=== PATIENT | female | born 1955 | race Caucasian/White ===

== ENCOUNTER 2016-06-18 14:32 | Emergency (ER) | payer SELFPAY ==
[2016-06-18 15:21] LABS: BILIRUBIN,URINE NEGATIVE (NEG); GLUCOSE,URINE 100 mg/dL (NEG); NITRITE,URINE NEGATIVE (NEG); PROTEIN,URINE NEGATIVE (NEG-TRACE); UROBILINOGEN,URINE 0.2 mg/dL (0.2 mg/dL)
[2016-06-18 15:31] LABS: BACTERIA,URINE FEW /HPF (0-FEW); RBC,URINE 0 /HPF (0-2); SQUAMOUS EPITHELIAL CELL,UR MOD /LPF
[2016-06-18] MEDS ORDERED: FENTANYL PF 100 MCG/2 ML VIAL. IV ONE (16:30)
[2016-06-18] MEDS ORDERED: FENTANYL PF 100 MCG/2 ML VIAL. IM ONE (16:30)
[2016-06-18 16:46] VITALS: BP 145/87
[2016-06-18 17:16] LABS: BASO % 0 % (0-3); EOS % 2 % (0-3); HEMATOCRIT 39.3 % (36.0-47.0); HEMOGLOBIN 13.4 g/dL (12.0-15.5); LYMPH # 1.4 x10^3/uL (1.0-4.8); LYMPH % 19 % (24-48); MEAN CORPUSCULAR HEMOGLOBIN 33 pg (25-35); MEAN CORPUSCULAR HGB CONC 34 g/dL (31-37); MEAN CORPUSCULAR VOLUME 98 fL (79-100); MONO % 10 % (0-9); NEUT % 69 % (31-73); PLATELET COUNT 112 x10^3/uL (140-400); RED BLOOD COUNT 4.03 x10^6/uL (3.50-5.40); RED CELL DISTRIBUTION WIDTH 17.2 % (11.5-14.5); WHITE BLOOD COUNT 7.3 x10^3/uL (4.0-11.0)
[2016-06-18 17:31] LABS: CALCIUM 8.7 mg/dL (8.5-10.1); CREATININE 0.7 mg/dL (0.6-1.0); GFR 85.1; POTASSIUM 4.3 mmol/L (3.5-5.1)
[2016-06-18 17:37] LABS: ALBUMIN 2.7 g/dL (3.4-5.0); ALBUMIN/GLOBULIN RATIO 0.6 (1.0-1.7); TOTAL BILIRUBIN 3.2 mg/dL (0.2-1.0); TOTAL PROTEIN 7.5 g/dL (6.4-8.2)
[2016-06-18] MEDS ORDERED: LEVO500T38 PO (17:58)
[2016-06-18] MEDS ORDERED: OXYC-323 PO (17:58)
--- NOTE | 2016-06-18 17:59 | PHYS DOC ---
Past Medical History Past Medical History: Cancer, Diabetes-Type II, High Cholesterol, Hypertension , Hepatitis, Liver Disease, Unknown, Other Additional Past Medical Histor: CIRRHOSIS, HEP C, STOMACH CA Past Surgical History: Hysterectomy, Other Additional Past Surgical Histo: MULTI STMOMACH SX FOR THE CA Additional Information: 2PPD Alcohol Use: Occasionally Additional Information: 1 MIXED DRINK PER WEEK Drug Use: Marijuana Adult General Chief Complaint Chief Complaint: URINARY RETENTION HPI HPI 60-year-old female with multiple medical problems presents stating she's been unable to urinate for the last 24 hours. She denies any fever chills sweats nausea or vomiting. She has not noted any gross hematuria. She states she's never had trouble with urinary retention in the past. She does states she's having some suprapubic tenderness that radiates to her back. [] Review of Systems Review of Systems Constitutional: Denies fever or chills [] Eyes: Denies change in visual acuity, redness, or eye pain [] HENT: Denies nasal congestion or sore throat [] Respiratory: Denies cough or shortness of breath [] Cardiovascular: No additional information not addressed in HPI [] GI: Denies abdominal pain, nausea, vomiting, bloody stools or diarrhea [] : Per history of present illness [] Musculoskeletal: Denies back pain or joint pain [] Integument: Denies rash or skin lesions [] Neurologic: Denies headache, focal weakness or sensory changes [] Endocrine: Denies polyuria or polydipsia [] Current Medications Current Medications Current Medications Medications (Trade) Dose Ordered Sig/Dayan Start Time Stop Time Status Last Admin Dose Admin Fentanyl Citrate (Fentanyl 2ml Vial) 50 mcg 1X ONCE 06/18/16 16:30 06/18/16 16:31 DC 06/18/16 16:29 50 MCG Allergies Allergies Allergies Coded Allergies Type Severity Reaction Last Updated Verified Sulfa (Sulfonamide Antibiotics) Allergy Unknown 06/18/16 Yes codeine Allergy Unknown 06/18/16 Yes Physical Exam Physical Exam Constitutional: Well developed, well nourished, mild distress, non-toxic appearance. [] HENT: Normocephalic, atraumatic, bilateral external ears normal, oropharynx moist, no oral exudates, nose normal. [] Eyes: PERRLA, EOMI, conjunctiva normal, no discharge. [] Neck: Normal range of motion, no tenderness, supple, no stridor. [] Cardiovascular:Heart rate regular rhythm, no murmur [] Lungs & Thorax: Bilateral breath sounds clear to auscultation [] Abdomen: Suprapubic tenderness no rebound or guarding. [] Skin: Warm, dry, no erythema, no rash. [] Back: No tenderness, no CVA tenderness. [] Extremities: No tenderness, no cyanosis, no clubbing, ROM intact, no edema. [] Neurologic: Alert and oriented X 3, normal motor function, normal sensory function, no focal deficits noted. [] Psychologic: Affect normal, judgement normal, mood normal. [] Current Patient Data Vital Signs Vital Signs Date Time Temp Pulse Resp B/P Pulse Ox O2 Delivery O2 Flow Rate FiO2 06/18/16 16:46 91 96 06/18/16 16:29 16 95.0 06/18/16 14:43 97.7 146/103 Room Air 97.7 Lab Values Laboratory Tests Test 06/18/16 15:00 06/18/16 17:00 Urine Color Yellow Urine Clarity Clear Urine pH 7.0 Urine Specific [place] <=1.005 Urine Protein Negativemg/dL (NEG-TRACE) Urine Glucose (UA) 100mg/dL (NEG) Urine Ketones (Stick) Negativemg/dL (NEG) Urine Blood Negative (NEG) Urine Nitrite Negative (NEG) Urine Bilirubin Negative (NEG) Urine Urobilinogen Dipstick 0.2mg/dL (0.2 mg/dL) Urine Leukocyte Esterase Negative (NEG) Urine RBC 0/HPF (0-2) Urine WBC 1-4/HPF (0-4) Urine Squamous Epithelial Cells Mod/LPF Urine Bacteria Few/HPF (0-FEW) White Blood Count 7.3x10^3/uL (4.0-11.0) Red Blood Count 4.03x10^6/uL (3.50-5.40) Hemoglobin 13.4g/dL (12.0-15.5) Hematocrit 39.3% (36.0-47.0) Mean Corpuscular Volume 98fL (79-100) Mean Corpuscular Hemoglobin 33pg (25-35) Mean Corpuscular Hemoglobin Concent 34g/dL (31-37) Red Cell Distribution Width 17.2% (11.5-14.5) H Platelet Count 112x10^3/uL (140-400) L Neutrophils (%) (Auto) 69% (31-73) Lymphocytes (%) (Auto) 19% (24-48) L Monocytes (%) (Auto) 10% (0-9) H Eosinophils (%) (Auto) 2% (0-3) Basophils (%) (Auto) 0% (0-3) Neutrophils # (Auto) 5.0x10^3uL (1.8-7.7) Lymphocytes # (Auto) 1.4x10^3/uL (1.0-4.8) Monocytes # (Auto) 0.7x10^3/uL (0.0-1.1) Eosinophils # (Auto) 0.1x10^3/uL (0.0-0.7) Basophils # (Auto) 0.0x10^3/uL (0.0-0.2) Sodium Level 140mmol/L (136-145) Potassium Level 4.3mmol/L (3.5-5.1) Chloride Level 105mmol/L (98-107) Carbon Dioxide Level 25mmol/L (21-32) Anion Gap 10 (6-14) Blood Urea Nitrogen 6mg/dL (7-20) L Creatinine 0.7mg/dL (0.6-1.0) Estimated GFR (Cockcroft-Gault) 85.1 BUN/Creatinine Ratio 9 (6-20) Glucose Level 183mg/dL (70-99) H Calcium Level 8.7mg/dL (8.5-10.1) Total Bilirubin 3.2mg/dL (0.2-1.0) H Aspartate Amino Transferase (AST) 89U/L (15-37) H Alanine Aminotransferase (ALT) 64U/L (14-59) H Alkaline Phosphatase 184U/L (46-116) H Total Protein 7.5g/dL (6.4-8.2) Albumin 2.7g/dL (3.4-5.0) L Albumin/Globulin Ratio 0.6 (1.0-1.7) L Laboratory Tests 06/18/16 17:00 Laboratory Tests 06/18/16 17:00 EKG EKG [] Radiology/Procedures Radiology/Procedures [] Impressions: PROCEDURE: ABDOMEN PELVIS WO CONTRAST INDICATION: Vomiting COMPARISON: None TECHNIQUE: Axial CT images obtained through the abdomen and pelvis. Intravenous contrast was not utilized. One or more of the following individualized dose reduction techniques were utilized for this examination: 1. Automated exposure control; 2. Adjustment of the mA and/or kV according to patient size; 3. Use of iterative reconstruction technique. FINDINGS: Abdominal aorta not aneurysmal. Calcification in region of mitral valve. Calcified granuloma right lower lung. Severe calcific atherosclerosis. No intrahepatic bile duct dilation. Cirrhotic liver morphology with collateral vessels. Gallbladder appears distended with gallstones seen. Poor evaluation of pancreas without contrast. Spleen unremarkable. No hydronephrosis. Multiple calcifications in the pelvis but suspect they are phleboliths. No definite evidence of small bowel obstruction. Colonic diverticulosis. There is some regions of prominence of the wall of the colon including within portions of the ascending and sigmoid colon with some indistinctness of the adjacent fat but there is indistinctness throughout a large portion of the intra-abdominal fat. Fat containing umbilical hernia with some fluid within. Degenerative changes spine. L1 [id number] compression deformity. Bladder decompressed with catheter. IMPRESSION: The colon is not very distended but there some regions with apparent prominence of the wall. Although this could be secondary to lack of distention colitis or diverticulitis is in the differential for this finding. If the patient has not had a colonoscopy then a follow-up exam or colonoscopy could be obtained to ensure that there is no neoplastic causes. Cirrhotic liver morphology with collateral vessel formation. Severe calcific atherosclerosis. Distended bladder with gallstones seen. Would correlate with symptoms of the region to ensure there is no gallbladder disease. If further information is desired a follow-up ultrasound could be obtained. L1 compression deformity is seen. This could be chronic but would correlate with point tenderness in region. Course & Med Decision Making Course & Med Decision Making Pertinent Labs and Imaging studies reviewed. (See chart for details) [ED course: 60-year-old female with urinary retention. Bladder scan showed greater than 700 mL in her bladder. Olivarez catheter was placed which released possibly 1 L of clear yellow urine. Patient felt much better after catheter placement. I discussed with the patient that she would need to leave the catheter in for a few days and have her follow-up with a urologist.] Dragon Disclaimer Dragon Disclaimer This electronic medical record was generated, in whole or in part, using a voice recognition dictation system. Departure Departure Impression: Primary Impression: Urinary retention Disposition: 01 HOME, SELF-CARE Condition: IMPROVED Referrals: MALIA MILLER DO Please follow-up with Dr. Miller this week for recheck. He will need to remove her Olivarez catheter in the next 48-72 hours Patient Instructions: Olivarez Catheter Care, Adult, Urinary Retention, Acute, Female Additional Instructions: If you're unable to get into a primary care physician in the next 72 hours please come to the emergency department to have her Olivarez catheter removed. Scripts Oxycodone/Apap 5-325 (Percocet 5-325 Mg Tablet)1 Each Tablet1 Tab PO PRN Q6HRS PRN PAIN #20 TAB Prov:NATALIYA CALVILLO DO 06/18/16 Levofloxacin (Levaquin)500 Mg Tablet1 Tab PO DAILY urinary tract infection #7 TAB Prov:NATALIYA CALVILLO DO 06/18/16 NATALIYA CALVILLO DO Jun 18, 2016 17:59
--- NOTE | 2016-06-18 18:08 | RAD ---
INDICATION: Vomiting COMPARISON: None TECHNIQUE: Axial CT images obtained through the abdomen and pelvis. Intravenous contrast was not utilized. One or more of the following individualized dose reduction techniques were utilized for this examination: 1. Automated exposure control; 2. Adjustment of the mA and/or kV according to patient size; 3. Use of iterative reconstruction technique. FINDINGS: Abdominal aorta not aneurysmal. Calcification in region of mitral valve. Calcified granuloma right lower lung. Severe calcific atherosclerosis. No intrahepatic bile duct dilation. Cirrhotic liver morphology with collateral vessels. Gallbladder appears distended with gallstones seen. Poor evaluation of pancreas without contrast. Spleen unremarkable. No hydronephrosis. Multiple calcifications in the pelvis but suspect they are phleboliths. No definite evidence of small bowel obstruction. Colonic diverticulosis. There is some regions of prominence of the wall of the colon including within portions of the ascending and sigmoid colon with some indistinctness of the adjacent fat but there is indistinctness throughout a large portion of the intra-abdominal fat. Fat containing umbilical hernia with some fluid within. Degenerative changes spine. L1 [id number] compression deformity. Bladder decompressed with catheter. IMPRESSION: The colon is not very distended but there some regions with apparent prominence of the wall. Although this could be secondary to lack of distention colitis or diverticulitis is in the differential for this finding. If the patient has not had a colonoscopy then a follow-up exam or colonoscopy could be obtained to ensure that there is no neoplastic causes. Cirrhotic liver morphology with collateral vessel formation. Severe calcific atherosclerosis. Distended bladder with gallstones seen. Would correlate with symptoms of the region to ensure there is no gallbladder disease. If further information is desired a follow-up ultrasound could be obtained. L1 compression deformity is seen. This could be chronic but would correlate with point tenderness in region. Electronically signed by: Vivek Lovett (Jun 18, 2016 18:06:39)
== END 2016-06-18 18:35 | disposition home or self-care (01) ==
LOC: ER 14:32
DX: R33.9 Retention of urine, unspecified (principal); R10.819 Abdominal tenderness, unspecified site; I10 Essential (primary) hypertension; E78.00 Pure hypercholesterolemia, unspecified; E11.9 Type 2 diabetes mellitus without complications; F12.10 Cannabis abuse, uncomplicated; F17.200 Nicotine dependence, unspecified, uncomplicated; Z86.19 Personal history of other infectious and parasitic diseases; Z90.710 Acquired absence of both cervix and uterus; Z88.2 Allergy status to sulfonamides; Z88.5 Allergy status to narcotic agent
CPT/HCPCS: 36415; 51702; 74176; 80053; 81001; 85027; 96372; 99285; J3010

== ENCOUNTER 2016-07-12 11:12 | Inpatient (IN) | payer SELFPAY ==
[~2016-07-12] VITALS: Ht 165.1 cm; Wt 94.6 kg
[~2016-07-12 11:12] MED LIST: LEVO500T38 PO; OXYC-323 PO
[2016-07-12] MEDS ORDERED: FAMOTIDINE 20 MG/2 ML VIAL IVP ONE (12:30)
[2016-07-12] MEDS ORDERED: ONDANSETRON PF 4 MG/2 ML VIAL. IV ONE (12:30)
[2016-07-12] MEDS ORDERED: IV NORMAL SALINE 1000ML BAG 1,000 ML IV ONE ×2 (12:30→15:25)
[2016-07-12] MEDS: FENTANYL PF 100 MCG/2 ML VIAL. IV PRN ×5 (12:46→20:10)
[2016-07-12] MEDS ORDERED: IOHEXOL 300 MG/ML 75 ML VIAL IV ONE (13:15)
[2016-07-12] MEDS ORDERED: CONTRAST GIVEN MC PRN (13:15)
[2016-07-12 14:03] LABS: BASO % 0 % (0-3); EOS % 1 % (0-3); HEMATOCRIT 34.8 % (36.0-47.0); LYMPH % 9 % (24-48); MEAN CORPUSCULAR HEMOGLOBIN 33 pg (25-35); MEAN CORPUSCULAR HGB CONC 35 g/dL (31-37); MEAN CORPUSCULAR VOLUME 97 fL (79-100); MONO % 6 % (0-9); NEUT % 84 % (31-73); PLATELET COUNT 101 x10^3/uL (140-400); RED BLOOD COUNT 3.61 x10^6/uL (3.50-5.40); RED CELL DISTRIBUTION WIDTH 15.5 % (11.5-14.5); WHITE BLOOD COUNT 10.7 x10^3/uL (4.0-11.0)
[2016-07-12 14:11] LABS: INR 1.6 (0.8-1.1); PROTHROMBIN TIME PATIENT 18.5 SEC (11.7-14.0)
--- NOTE | 2016-07-12 14:18 | PHYS DOC ---
Past Medical History Past Medical History: Cancer, Diabetes-Type II, High Cholesterol, Hypertension , Hepatitis, Liver Disease, Unknown, Other Additional Past Medical Histor: STAGE IV CIRRHOSIS, HEP C, STOMACH CA Past Surgical History: Hysterectomy, Other Additional Past Surgical Histo: MULTI STMOMACH SX FOR THE CA, uterine cystectomy Alcohol Use: Heavy Drug Use: Marijuana Adult General Chief Complaint Chief Complaint: ABDOMINAL PAIN HPI HPI Patient is a 60 year old female who presents with complaint of severe abdominal pain. Patient states that her pain has been worsening over the past 2 days. The patient has had significant history of abdominal problems including hepatitis C with current stage IV liver cirrhosis. Patient has been dealing with mid abdominal pain due to previous hernia. Patient states that currently she has a mass that has formed in her abdominal wall which has been evaluated in the past and found to not be due to hernia. Patient states that she has had associated nausea with her symptoms. Patient rates her pain as 10 out of 10. Pain is located primarily near her umbilicus and radiates bilaterally towards her back. Patient states that she took a tablet of pain medication from an old prescription to help with symptoms. Patient states that this offered mild relief. Patient is not currently following with a GI specialist due to lack of insurance. Patient states that she has followed at [facility] for care recently. Review of Systems Review of Systems Constitutional: Generalized weakness, Denies fever or chills [] Eyes: Denies change in visual acuity, redness, or eye pain [] HENT: Denies nasal congestion or sore throat [] Respiratory: Denies cough or shortness of breath [] Cardiovascular: Denies chest pain or edema [] GI: Abdominal pain, nausea, denies vomiting, bloody stools or diarrhea [] : Denies dysuria or hematuria [] Musculoskeletal: Denies back pain or joint pain [] Integument: Denies rash or skin lesions [] Neurologic: Denies headache, focal weakness or sensory changes [] Current Medications Current Medications Current Medications Medications (Trade) Dose Ordered Sig/Dayan Start Time Stop Time Status Last Admin Dose Admin Famotidine 20 mg 20 mg 1X ONCE 07/12/16 12:30 07/12/16 12:34 DC 07/12/16 12:45 20 MG Fentanyl Citrate (Fentanyl 2ml Vial) 50 mcg PRN Q15MIN PRN 07/12/16 12:30 07/13/16 12:29 07/13/16 03:44 50 MCG Info (Do NOT chart on this entry -- for MONITORING) 1 each PRN DAILY PRN 07/12/16 13:15 07/14/16 13:14 Iohexol (Omnipaque 300 Mg/ml) 75 ml 1X ONCE 07/12/16 13:15 07/12/16 13:16 DC 07/12/16 13:15 75 ML Ondansetron HCl (Zofran) 4 mg 1X ONCE 07/12/16 12:30 07/12/16 12:34 DC 07/12/16 12:45 4 MG Sodium Chloride (Iv Sodium Chloride 0.9% 1000ml Bag) 1,000 ml @ 1,000 mls/hr 1X ONCE 07/12/16 12:30 07/12/16 13:29 DC 07/12/16 12:45 1,000 MLS/HR Allergies Allergies Physical Exam Physical Exam Constitutional: Alert, afebrile, appears in chronically poor health. [] HENT: Normocephalic, atraumatic, bilateral external ears normal, oropharynx moist, no oral exudates, nose normal. [] Eyes: PERRLA, EOMI, conjunctiva normal, no discharge. [] Neck: Normal range of motion, no tenderness, supple, no stridor. [] Cardiovascular:Heart rate regular rhythm, no murmur [] Lungs & Thorax: Bilateral breath sounds clear to auscultation [] Abdomen: Bowel sounds normal, soft, tenderness to palpation superior to the umbilicus with palpable abdominal wall mass, no pulsatile masses. [] Skin: Warm, dry, no erythema, no rash. [] Back: No tenderness, no CVA tenderness. [] Extremities: No tenderness, no cyanosis, no clubbing, ROM intact, trace pedal edema. [] Neurologic: Alert and oriented X 3, normal motor function, normal sensory function, no focal deficits noted. [] Current Patient Data Vital Signs Vital Signs Date Time Temp Pulse Resp B/P Pulse Ox O2 Delivery O2 Flow Rate FiO2 07/12/16 15:00 92 19 107/56 96 07/12/16 11:30 98.0 Nasal Cannula 2 98.0 Lab Values Laboratory Tests Test 07/12/16 11:54 07/12/16 13:58 07/12/16 14:10 White Blood Count 10.7x10^3/uL (4.0-11.0) Red Blood Count 3.61x10^6/uL (3.50-5.40) Hemoglobin 12.0g/dL (12.0-15.5) Hematocrit 34.8% (36.0-47.0) L Mean Corpuscular Volume 97fL (79-100) Mean Corpuscular Hemoglobin 33pg (25-35) Mean Corpuscular Hemoglobin Concent 35g/dL (31-37) Red Cell Distribution Width 15.5% (11.5-14.5) H Platelet Count 101x10^3/uL (140-400) L Neutrophils (%) (Auto) 84% (31-73) H Lymphocytes (%) (Auto) 9% (24-48) L Monocytes (%) (Auto) 6% (0-9) Eosinophils (%) (Auto) 1% (0-3) Basophils (%) (Auto) 0% (0-3) Neutrophils # (Auto) 9.0x10^3uL (1.8-7.7) H Lymphocytes # (Auto) 1.0x10^3/uL (1.0-4.8) Monocytes # (Auto) 0.6x10^3/uL (0.0-1.1) Eosinophils # (Auto) 0.1x10^3/uL (0.0-0.7) Basophils # (Auto) 0.0x10^3/uL (0.0-0.2) Prothrombin Time 18.5SEC (11.7-14.0) H Prothrombin Time INR 1.6 (0.8-1.1) H PTT 35SEC (24-38) Sodium Level 136mmol/L (136-145) Potassium Level 3.7mmol/L (3.5-5.1) Chloride Level 99mmol/L (98-107) Carbon Dioxide Level 28mmol/L (21-32) Anion Gap 9 (6-14) Blood Urea Nitrogen 8mg/dL (7-20) Creatinine 0.9mg/dL (0.6-1.0) Estimated GFR (Cockcroft-Gault) 63.7 BUN/Creatinine Ratio 9 (6-20) Glucose Level 128mg/dL (70-99) H Calcium Level 8.2mg/dL (8.5-10.1) L Total Bilirubin 3.5mg/dL (0.2-1.0) H Aspartate Amino Transferase (AST) 47U/L (15-37) H Alanine Aminotransferase (ALT) 35U/L (14-59) Alkaline Phosphatase 119U/L (46-116) H Total Protein 6.2g/dL (6.4-8.2) L Albumin 2.4g/dL (3.4-5.0) L Albumin/Globulin Ratio 0.6 (1.0-1.7) L Lipase 89U/L (73-393) Urine Collection Type Unknown Urine Color [place] Urine Clarity Clear Urine pH 5.5 Urine Specific [place] 1.020 Urine Protein Negativemg/dL (NEG-TRACE) Urine Glucose (UA) Negativemg/dL (NEG) Urine Ketones (Stick) Tracemg/dL (NEG) Urine Blood Negative (NEG) Urine Nitrite Negative (NEG) Urine Bilirubin Small (NEG) Urine Urobilinogen Dipstick 1.0mg/dL (0.2 mg/dL) Urine Leukocyte Esterase Small (NEG) Urine RBC 0/HPF (0-2) Urine WBC 5-10/HPF (0-4) Urine Squamous Epithelial Cells Mod/LPF Urine Bacteria Few/HPF (0-FEW) Urine Hyaline Casts Many/HPF Urine Mucus Marked/LPF Ammonia 38mcmol/L (11-34) H Laboratory Tests 07/12/16 11:54 Laboratory Tests 07/12/16 11:54 EKG EKG Interpreted by me: Heart rate 93, sinus rhythm, normal intervals, normal axis, no acute ST/T-wave abnormalities present [] Radiology/Procedures Radiology/Procedures [facility] [address] [place], [place] [id number] IMAGING REPORT Signed PATIENT: DANIEL AG ACCOUNT: [id number] : 1955 LOCATION: ER AGE: 60 SEX: F EXAM STATUS: REG ER ORD. PHYSICIAN: YAZAN AGGARWAL MD REASON: severe abdominal pain PROCEDURE: ABD PELV W/ IV CONTRAST ONLY CT abdomen and pelvis with contrast Indication: Severe abdominal pain. Patient has history of stomach carcinoma. Axial imaging through the abdomen and pelvis was performed after the administration of intravenous contrast. Comparison is made with prior CT from 06/18/2016. The lung bases demonstrate bibasilar atelectasis or infiltrate. Liver again demonstrates a nodular contour with numerous collateral vessels and recanalization of the umbilical vein consistent with cirrhosis and hypertension. There is upper abdominal ascites present. No discrete liver mass is identified. The gallbladder is distended. There are small stones within the gallbladder. No biliary ductal dilatation is seen. Pancreas is unremarkable. The spleen is upper limits of normal in size. No adrenal mass is identified. The kidneys are unremarkable. Aorta is calcified but not aneurysmal. The stomach is decompressed. Imaging through the pelvis shows moderate free fluid in the pelvis. The small bowel loops are normal in caliber without evidence of obstruction. There are findings suggestive of diffuse colonic wall thickening with pericolonic inflammatory changes. This is suggestive of a nonspecific colitis, likely infectious or inflammatory. No free air is seen. No fluid collection to suggest abscess is seen. There is a small fat containing umbilical hernia noted. Impression: 1. Bibasilar atelectasis. 2. Findings consistent with cirrhosis and portal hypertension with abdominal and pelvic ascites. 3. Gallbladder hydrops and cholelithiasis. 4. Colonic wall thickening and pericolonic inflammation, particularly involving the ascending colon. This is consistent with a nonspecific colitis. No abscess formation or free air is identified. Electronically signed by: David Stiles MD (Jul 12, 2016 16:06:01) DICTATED and SIGNED BY: DAVID STILES MD DATE: 07/12/16 1606 CC: YAZAN AGGARWAL MD; NO PCP ~ [] Course & Med Decision Making Course & Med Decision Making Pertinent Labs and Imaging studies reviewed. (See chart for details) Patient started on IV fluids, fentanyl, and Zofran. The patient has been noted to have low blood pressures in the emergency department. The patient will continue on IV fluids and patient will need admission to hospital for further treatment. CT scan pending at time of admission. Dr. Stafford will follow-up with the CT results. Patient admitted to Dr. Stewart. Courtney Disclaimer Courtney Disclaimer This electronic medical record was generated, in whole or in part, using a voice recognition dictation system. Departure Departure Impression: Primary Impression: Abdominal pain Additional Impression: Hypotension Disposition: 09 ADMITTED INPATIENT Admitting Physician: Maty Stewart Condition: GUARDED Referrals: NO PCP (PCP) Problem Qualifiers Primary Impression: Abdominal pain Abdominal location: periumbilical Qualified Code: R10.33 - Periumbilical pain Additional Impression: Hypotension Hypotension type: unspecified hypotension type Qualified Code: I95.9 - Hypotension, unspecified YAZAN AGGARWAL MD Jul 12, 2016 14:18
[2016-07-12 14:21] LABS: CALCIUM 8.2 mg/dL (8.5-10.1); CREATININE 0.9 mg/dL (0.6-1.0); GFR 63.7; POTASSIUM 3.7 mmol/L (3.5-5.1)
[2016-07-12 14:27] LABS: ALBUMIN 2.4 g/dL (3.4-5.0); ALBUMIN/GLOBULIN RATIO 0.6 (1.0-1.7); TOTAL BILIRUBIN 3.5 mg/dL (0.2-1.0); TOTAL PROTEIN 6.2 g/dL (6.4-8.2)
[2016-07-12 14:28] LABS: BILIRUBIN,URINE SMALL (NEG); GLUCOSE,URINE NEGATIVE (NEG); NITRITE,URINE NEGATIVE (NEG); PH,URINE 5.5; PROTEIN,URINE NEGATIVE (NEG-TRACE)
[2016-07-12 14:37] LABS: BACTERIA,URINE FEW /HPF (0-FEW); RBC,URINE 0 /HPF (0-2); SQUAMOUS EPITHELIAL CELL,UR MOD /LPF
[2016-07-12] MEDS ORDERED: ONDANSETRON PF 4 MG/2 ML VIAL. IV PRN (15:45)
[2016-07-12] MEDS ORDERED: ACETAMINOPHEN 325 MG TABLET. PO PRN (15:45)
[2016-07-12] MEDS ORDERED: CEFTRIAXONE 1GM IVPB FOR OMNI 50 ML IV ONE (15:45)
--- NOTE | 2016-07-12 16:07 | RAD ---
CT abdomen and pelvis with contrast Indication: Severe abdominal pain. Patient has history of stomach carcinoma. Axial imaging through the abdomen and pelvis was performed after the administration of intravenous contrast. Comparison is made with prior CT from 06/18/2016. The lung bases demonstrate bibasilar atelectasis or infiltrate. Liver again demonstrates a nodular contour with numerous collateral vessels and recanalization of the umbilical vein consistent with cirrhosis and hypertension. There is upper abdominal ascites present. No discrete liver mass is identified. The gallbladder is distended. There are small stones within the gallbladder. No biliary ductal dilatation is seen. Pancreas is unremarkable. The spleen is upper limits of normal in size. No adrenal mass is identified. The kidneys are unremarkable. Aorta is calcified but not aneurysmal. The stomach is decompressed. Imaging through the pelvis shows moderate free fluid in the pelvis. The small bowel loops are normal in caliber without evidence of obstruction. There are findings suggestive of diffuse colonic wall thickening with pericolonic inflammatory changes. This is suggestive of a nonspecific colitis, likely infectious or inflammatory. No free air is seen. No fluid collection to suggest abscess is seen. There is a small fat containing umbilical hernia noted. Impression: 1. Bibasilar atelectasis. 2. Findings consistent with cirrhosis and portal hypertension with abdominal and pelvic ascites. 3. Gallbladder hydrops and cholelithiasis. 4. Colonic wall thickening and pericolonic inflammation, particularly involving the ascending colon. This is consistent with a nonspecific colitis. No abscess formation or free air is identified. Electronically signed by: David Stiles MD (Jul 12, 2016 16:06:01)
[2016-07-12 17:04] VITALS: BP 129/69
[2016-07-12] MEDS: IV NORMAL SALINE 1000ML BAG 1,000 ML IV SCH (17:17)
[2016-07-12] MEDS ORDERED: METF500T4 PO (18:03)
[2016-07-12] MEDS ORDERED: LACT1CAP8 PO (18:04)
--- NOTE | 2016-07-12 18:54 | EKG ---
[facility] [address] [place] [address] Test Date: 2016-07-12 Test Time: 11:35:37 Pat Name: DANIEL AG Department: Room: 530 Gender: F Media Monitor: : 1955 Requested By: NANY CROWLEY Order Number: [id number] Reading MD: Kassy Velázquez Measurements Intervals [place] Rate: 93 P: 39 ME: 144 QRS: -7 QRSD: 96 T: 21 QT: 394 QTc: 493 Interpretive Statements SINUS RHYTHM LEFTWARD AXIS NO SPECIFIC ECG ABNORMALITIES RI6.01 No previous ECG available for comparison Electronically Signed On 07-13-2016 19:08:46 TECHNICAL TRAINER by Kassy Velázquez
[2016-07-12 19:00] VITALS: BP 131/82
[2016-07-12 23:00] VITALS: BP 116/62
--- NOTE | 2016-07-12 23:31 | HP ---
ADMIT DATE: 07/12/2016 CHIEF COMPLAINT: Abdominal pain. HISTORY OF PRESENT ILLNESS: The patient is a pleasant 60-year-old female who presents with abdominal pain. She has known cirrhosis that has been worsening over the past couple of days, rates it a 7/10. She has also had a previous hernia that has not been repaired yet. She has some type of mass around the hernia as well. While in the ER, she is noted to have a urinary tract infection as well. Discussed the case with the ER physician. We are going to admit her and give IV antibiotics, fluids, pain meds, and consult GI. PAST MEDICAL HISTORY: Hernia, stage IV liver cirrhosis, diabetes, hyperlipidemia, hypertension, hepatitis, stomach cancer. ALLERGIES: SULFA. FAMILY HISTORY: Coronary disease. SOCIAL HISTORY: She does not drink, smoke, or take drugs. MEDICATIONS: Reviewed, please refer to the MRAD. REVIEW OF SYSTEMS: GENERAL: No history of weight change, weakness or fevers. SKIN: No bruising, hair changes or rashes. EYES: No blurred, double or loss of vision. NOSE AND THROAT: No history of nosebleeds, hoarseness or sore throat. HEART: No history of palpitations, chest pain or shortness of breath on exertion. LUNGS: Denies cough, hemoptysis, wheezing or shortness of breath. GASTROINTESTINAL: Complains of abdominal pain. GENITOURINARY: No history of frequency, urgency, hesitancy or nocturia. NEUROLOGIC: Denies history of numbness, tingling, tremor or weakness. PSYCHIATRIC: No history of panic, anxiety or depression. ENDOCRINE: No history of heat or cold intolerance, polyuria or polydipsia. EXTREMITIES: Denies muscle weakness, joint pain, pain on walking or stiffness. PHYSICAL EXAMINATION: VITAL SIGNS: Stable. Temperature is afebrile, pulse 90, respirations 18, blood pressure 115/60. GENERAL: She is alert, complaining of tummy pain. HEART: Normal S1, S2. LUNGS: Clear. ABDOMEN: Soft. Decreased bowel sounds, tender. EXTREMITIES: No edema. SKIN: No rashes. PSYCHIATRIC: Stable. VASCULAR: Good capillary refill. ENDOCRINE: No thyromegaly. LYMPHATICS: No cervical nodes. HEMATOPOIETIC: No bruising. LABORATORY DATA: Electrolytes normal other than a glucose of 128 and a calcium of 8.2, total bilirubin is high at 3.5, AST is high at 47, ALT 35, alk phos 119. Ammonia 38. White count 10, hemoglobin 12, platelets 101. Urinalysis is showing 5-10 white cells with a small amount of leukocyte esterase. ASSESSMENT AND PLAN: Abdominal pain in a middle-aged female who has known stomach cancer/UTI. The patient has been admitted. We will give her IV antibiotics, IV fluids. Consult GI. Resume her home meds, frequent labs. NANY CROWLEY DO DR: BETZAIDA/anthony JOB#: [id number] / [id number]
[2016-07-13] MEDS: IV NORMAL SALINE 1000ML BAG 1,000 ML IV SCH ×4 (00:15→13:26)
[2016-07-13] MEDS: FENTANYL PF 100 MCG/2 ML VIAL. IV PRN ×10 (00:16→23:29)
[2016-07-13 03:00] VITALS: BP 117/69
[2016-07-13 06:26] LABS: BASO % 0 % (0-3); EOS % 2 % (0-3); HEMATOCRIT 31.7 % (36.0-47.0); HEMOGLOBIN 10.5 g/dL (12.0-15.5); LYMPH # 0.9 x10^3/uL (1.0-4.8); LYMPH % 9 % (24-48); MEAN CORPUSCULAR HEMOGLOBIN 34 pg (25-35); MEAN CORPUSCULAR HGB CONC 33 g/dL (31-37); MEAN CORPUSCULAR VOLUME 101 fL (79-100); MONO % 5 % (0-9); NEUT % 84 % (31-73); PLATELET COUNT 92 x10^3/uL (140-400); RED BLOOD COUNT 3.14 x10^6/uL (3.50-5.40); RED CELL DISTRIBUTION WIDTH 15.7 % (11.5-14.5)
[2016-07-13 06:57] LABS: CALCIUM 7.7 mg/dL (8.5-10.1); CREATININE 0.9 mg/dL (0.6-1.0); GFR 63.7
[2016-07-13 07:00] VITALS: BP 100/57
[2016-07-13 11:00] VITALS: BP 130/72
[2016-07-13] MEDS ORDERED: MAGNESIUM HYDROXIDE 2,400 MG/30 ML ORAL.SUSP. PO ONE (12:00)
[2016-07-13] MEDS ORDERED: IV NORMAL SALINE 1000ML BAG 1,000 ML IV SCH (13:05)
[2016-07-13 13:55] LABS: INR 1.9 (0.8-1.1); PROTHROMBIN TIME PATIENT 20.5 SEC (11.7-14.0)
[2016-07-13] MEDS: CEFTRIAXONE SODIUM 1 GM in IV NORMAL SALINE 50ML 50 ML IV SCH (14:06)
[2016-07-13 15:00] VITALS: BP 118/68
--- NOTE | 2016-07-13 15:15 | PDOC ---
PROGRESS NOTES Chief Complaint Chief Complaint 1. Abdominal pain 2. Cirrhosis 3. Ascites 4. UTI 5. Hypertension 6. Hyperlipemia 7. Hepatitis History of Present Illness History of Present Illness Pt awake, alert, and oriented when seen this AM. Pt states that she is doing "ok". Pt states that she feels like her abdomen is really tight and uncomfortable. Family member present and at bedside. Pt denies any CP or SOB. All questions and concerns answered and addressed. Vitals Vitals Vital Signs Date Time Temp Pulse Resp B/P Pulse Ox O2 Delivery O2 Flow Rate FiO2 07/13/16 14:05 18 Nasal Cannula 2.0 07/13/16 11:00 99.1 97 130/72 90 99.1 Physical Exam General: Alert, Oriented X3, Cooperative, No acute distress Heart: Regular rate, Normal S1, Normal S2, No murmurs Lungs: Clear Abdomen: Other (moderate ascites) Extremities: No clubbing, No cyanosis, No edema Skin: No rashes, No breakdown Labs LABS Laboratory Tests Test 07/12/16 21:07 07/13/16 05:55 07/13/16 07:40 07/13/16 11:16 Glucose (Fingerstick) 182mg/dL (70-99) 107mg/dL (70-99) 186mg/dL (70-99) White Blood Count 10.0x10^3/uL (4.0-11.0) Red Blood Count 3.14x10^6/uL (3.50-5.40) Hemoglobin 10.5g/dL (12.0-15.5) Hematocrit 31.7% (36.0-47.0) Mean Corpuscular Volume 101fL (79-100) Mean Corpuscular Hemoglobin 34pg (25-35) Mean Corpuscular Hemoglobin Concent 33g/dL (31-37) Red Cell Distribution Width 15.7% (11.5-14.5) Platelet Count 92x10^3/uL (140-400) Neutrophils (%) (Auto) 84% (31-73) Lymphocytes (%) (Auto) 9% (24-48) Monocytes (%) (Auto) 5% (0-9) Eosinophils (%) (Auto) 2% (0-3) Basophils (%) (Auto) 0% (0-3) Neutrophils # (Auto) 8.4x10^3uL (1.8-7.7) Lymphocytes # (Auto) 0.9x10^3/uL (1.0-4.8) Monocytes # (Auto) 0.5x10^3/uL (0.0-1.1) Eosinophils # (Auto) 0.2x10^3/uL (0.0-0.7) Basophils # (Auto) 0.0x10^3/uL (0.0-0.2) Sodium Level 132mmol/L (136-145) Potassium Level 4.0mmol/L (3.5-5.1) Chloride Level 102mmol/L (98-107) Carbon Dioxide Level 26mmol/L (21-32) Anion Gap 4 (6-14) Blood Urea Nitrogen 9mg/dL (7-20) Creatinine 0.9mg/dL (0.6-1.0) Estimated GFR (Cockcroft-Gault) 63.7 Glucose Level 110mg/dL (70-99) Calcium Level 7.7mg/dL (8.5-10.1) Test 07/13/16 13:05 Prothrombin Time 20.5SEC (11.7-14.0) Prothromb Time International Ratio 1.9 (0.8-1.1) Review of Systems Review of Systems Patient complaint of abdomen tight Patient complaint of hunger Assessment and Plan Assessmemt and Plan Problems Medical Problems: (1) Abdominal pain Status: Acute (2) Hypotension Status: Acute Assessment: 1. Abdominal pain 2. Cirrhosis 3. Ascites 4. UTI 5. Hypertension 6. Hyperlipemia 7. Hepatitis Plan: Continue to monitor the patient per floor protocol Continue daily labs- CBC, BMP, BUN, and Cr Monitor AM INR Daily PTOT Switch IVFs to TKO Add Motrin 600 mg q6 PRN Consult GI, appreciate all input and recommendations Consult IR- possible paracentesis Add a Hepatic diet DW RN Problems: Comment Review of Relevant I have reviewed the following items vel (where applicable) has been applied. Labs Laboratory Tests Test 07/12/16 11:54 07/12/16 13:58 07/12/16 14:10 07/12/16 21:07 White Blood Count 10.7x10^3/uL (4.0-11.0) Red Blood Count 3.61x10^6/uL (3.50-5.40) Hemoglobin 12.0g/dL (12.0-15.5) Hematocrit 34.8% (36.0-47.0) Mean Corpuscular Volume 97fL (79-100) Mean Corpuscular Hemoglobin 33pg (25-35) Mean Corpuscular Hemoglobin Concent 35g/dL (31-37) Red Cell Distribution Width 15.5% (11.5-14.5) Platelet Count 101x10^3/uL (140-400) Neutrophils (%) (Auto) 84% (31-73) Lymphocytes (%) (Auto) 9% (24-48) Monocytes (%) (Auto) 6% (0-9) Eosinophils (%) (Auto) 1% (0-3) Basophils (%) (Auto) 0% (0-3) Neutrophils # (Auto) 9.0x10^3uL (1.8-7.7) Lymphocytes # (Auto) 1.0x10^3/uL (1.0-4.8) Monocytes # (Auto) 0.6x10^3/uL (0.0-1.1) Eosinophils # (Auto) 0.1x10^3/uL (0.0-0.7) Basophils # (Auto) 0.0x10^3/uL (0.0-0.2) Prothrombin Time 18.5SEC (11.7-14.0) Prothromb Time International Ratio 1.6 (0.8-1.1) Activated Partial Thromboplast Time 35SEC (24-38) Sodium Level 136mmol/L (136-145) Potassium Level 3.7mmol/L (3.5-5.1) Chloride Level 99mmol/L (98-107) Carbon Dioxide Level 28mmol/L (21-32) Anion Gap 9 (6-14) Blood Urea Nitrogen 8mg/dL (7-20) Creatinine 0.9mg/dL (0.6-1.0) Estimated GFR (Cockcroft-Gault) 63.7 BUN/Creatinine Ratio 9 (6-20) Glucose Level 128mg/dL (70-99) Calcium Level 8.2mg/dL (8.5-10.1) Total Bilirubin 3.5mg/dL (0.2-1.0) Aspartate Amino Transf (AST/SGOT) 47U/L (15-37) Alanine Aminotransferase (ALT/SGPT) 35U/L (14-59) Alkaline Phosphatase 119U/L (46-116) Total Protein 6.2g/dL (6.4-8.2) Albumin 2.4g/dL (3.4-5.0) Albumin/Globulin Ratio 0.6 (1.0-1.7) Lipase 89U/L (73-393) Urine Collection Type Unknown Urine Color [place] Urine Clarity Clear Urine pH 5.5 Urine Specific [place] 1.020 Urine Protein Negativemg/dL (NEG-TRACE) Urine Glucose (UA) Negativemg/dL (NEG) Urine Ketones (Stick) Tracemg/dL (NEG) Urine Blood Negative (NEG) Urine Nitrite Negative (NEG) Urine Bilirubin Small (NEG) Urine Urobilinogen Dipstick 1.0mg/dL (0.2 mg/dL) Urine Leukocyte Esterase Small (NEG) Urine RBC 0/HPF (0-2) Urine WBC 5-10/HPF (0-4) Urine Squamous Epithelial Cells Mod/LPF Urine Bacteria Few/HPF (0-FEW) Urine Hyaline Casts Many/HPF Urine Mucus Marked/LPF Ammonia 38mcmol/L (11-34) Glucose (Fingerstick) 182mg/dL (70-99) Test 07/13/16 05:55 07/13/16 07:40 07/13/16 11:16 07/13/16 13:05 White Blood Count 10.0x10^3/uL (4.0-11.0) Red Blood Count 3.14x10^6/uL (3.50-5.40) Hemoglobin 10.5g/dL (12.0-15.5) Hematocrit 31.7% (36.0-47.0) Mean Corpuscular Volume 101fL (79-100) Mean Corpuscular Hemoglobin 34pg (25-35) Mean Corpuscular Hemoglobin Concent 33g/dL (31-37) Red Cell Distribution Width 15.7% (11.5-14.5) Platelet Count 92x10^3/uL (140-400) Neutrophils (%) (Auto) 84% (31-73) Lymphocytes (%) (Auto) 9% (24-48) Monocytes (%) (Auto) 5% (0-9) Eosinophils (%) (Auto) 2% (0-3) Basophils (%) (Auto) 0% (0-3) Neutrophils # (Auto) 8.4x10^3uL (1.8-7.7) Lymphocytes # (Auto) 0.9x10^3/uL (1.0-4.8) Monocytes # (Auto) 0.5x10^3/uL (0.0-1.1) Eosinophils # (Auto) 0.2x10^3/uL (0.0-0.7) Basophils # (Auto) 0.0x10^3/uL (0.0-0.2) Sodium Level 132mmol/L (136-145) Potassium Level 4.0mmol/L (3.5-5.1) Chloride Level 102mmol/L (98-107) Carbon Dioxide Level 26mmol/L (21-32) Anion Gap 4 (6-14) Blood Urea Nitrogen 9mg/dL (7-20) Creatinine 0.9mg/dL (0.6-1.0) Estimated GFR (Cockcroft-Gault) 63.7 Glucose Level 110mg/dL (70-99) Calcium Level 7.7mg/dL (8.5-10.1) Glucose (Fingerstick) 107mg/dL (70-99) 186mg/dL (70-99) Prothrombin Time 20.5SEC (11.7-14.0) Prothromb Time International Ratio 1.9 (0.8-1.1) Laboratory Tests Test 07/12/16 21:07 07/13/16 05:55 07/13/16 07:40 07/13/16 11:16 Glucose (Fingerstick) 182mg/dL (70-99) 107mg/dL (70-99) 186mg/dL (70-99) White Blood Count 10.0x10^3/uL (4.0-11.0) Red Blood Count 3.14x10^6/uL (3.50-5.40) Hemoglobin 10.5g/dL (12.0-15.5) Hematocrit 31.7% (36.0-47.0) Mean Corpuscular Volume 101fL (79-100) Mean Corpuscular Hemoglobin 34pg (25-35) Mean Corpuscular Hemoglobin Concent 33g/dL (31-37) Red Cell Distribution Width 15.7% (11.5-14.5) Platelet Count 92x10^3/uL (140-400) Neutrophils (%) (Auto) 84% (31-73) Lymphocytes (%) (Auto) 9% (24-48) Monocytes (%) (Auto) 5% (0-9) Eosinophils (%) (Auto) 2% (0-3) Basophils (%) (Auto) 0% (0-3) Neutrophils # (Auto) 8.4x10^3uL (1.8-7.7) Lymphocytes # (Auto) 0.9x10^3/uL (1.0-4.8) Monocytes # (Auto) 0.5x10^3/uL (0.0-1.1) Eosinophils # (Auto) 0.2x10^3/uL (0.0-0.7) Basophils # (Auto) 0.0x10^3/uL (0.0-0.2) Sodium Level 132mmol/L (136-145) Potassium Level 4.0mmol/L (3.5-5.1) Chloride Level 102mmol/L (98-107) Carbon Dioxide Level 26mmol/L (21-32) Anion Gap 4 (6-14) Blood Urea Nitrogen 9mg/dL (7-20) Creatinine 0.9mg/dL (0.6-1.0) Estimated GFR (Cockcroft-Gault) 63.7 Glucose Level 110mg/dL (70-99) Calcium Level 7.7mg/dL (8.5-10.1) Test 07/13/16 13:05 Prothrombin Time 20.5SEC (11.7-14.0) Prothromb Time International Ratio 1.9 (0.8-1.1) Microbiology 07/12/16 Urine Culture - Preliminary, Resulted 07/12/16 Urine Culture Result 1 (MILIND) - Preliminary, Resulted Medications Current Medications Fentanyl Citrate (Fentanyl 2ml Vial) 50 mcg PRN Q15MIN PRN IV PAIN GREATER THAN 3/10 Last administered on 07/13/16t 12:19; Start 07/12/16 at 12:30; Stop at 12:29; Status DC Ondansetron HCl (Zofran) 4 mg 1X ONCE IV Last administered on 07/12/16 12:45 ; Start 07/12/16 at 12:30; Stop 07/12/16 at 12:34; Status DC Famotidine 20 mg 20 mg 1X ONCE IVP Last administered on 07/12/16 12:45; Start 07/12/16 at 12:30; Stop 07/12/16 at 12:34; Status DC Sodium Chloride (Iv Sodium Chloride 0.9% 1000ml Bag) 1,000 ml @ 1,000 mls/hr 1X ONCE IV Last administered on 07/12/16 12:45; Start 07/12/16 at 12:30; Stop 07/12/16 at 13:29; Status DC Iohexol (Omnipaque 300 Mg/ml) 75 ml 1X ONCE IV Last administered on 07/12/16 13:15; Start 07/12/16 at 13:15; Stop 07/12/16 at 13:16; Status DC Info 1 each 1 each PRN DAILY PRN MC SEE COMMENTS; Start 07/12/16 at 13:15; Stop 07/14/16 at 13:14 Ceftriaxone Sodium 1 gm/ Sodium Chloride 50 ml @ 100 mls/hr Q24H IV Last administered on 07/13/16 14:06; Start 07/13/16 at 15:00 Ceftriaxone Sodium (Rocephin 1gm Ivpb For Omni) 50 ml @ 100 mls/hr 1X ONCE IV Last administered on 07/12/16 16:12; Start 07/12/16 at 15:45; Stop 07/12/16 at 16:14; Status DC Ondansetron HCl (Zofran) 4 mg PRN Q8HRS PRN IV NAUSEA/VOMITING; Start 07/12/16 at 15:45; Stop 07/13/16 at 15:44 Fentanyl Citrate 50 mcg 50 mcg PRN Q2HR PRN IV PAIN Last administered on 14:05; Start 07/12/16 at 15:45; Stop 07/13/16 at 15:44 Sodium Chloride (Iv Sodium Chloride 0.9% 1000ml Bag) 1,000 ml @ 150 mls/hr Q6H40M IV Last administered on 07/13/16 12:10; Start 07/12/16 at 15:31; Stop 07/13/16 at 13:06; Status DC Acetaminophen 650 mg 650 mg PRN Q4HRS PRN PO FEVER; Start 07/12/16 at 15:45; Stop 07/13/16 at 12:54; Status DC Sodium Chloride (Iv Sodium Chloride 0.9% 1000ml Bag) 1,000 ml @ 1,000 mls/hr 1X ONCE IV Last administered on 07/12/16 15:25; Start 07/12/16 at 15:25; Stop 07/12/16 at 16:24; Status DC Magnesium Hydroxide 2400 mg 2,400 mg 1X ONCE PO Last administered on 12:10; Start 07/13/16 at 12:00; Stop 07/13/16 at 12:01; Status DC Sodium Chloride 1,000 ml @ 50 mls/hr Q20H IV ; Start 07/13/16 at 13:05; Stop at 13:07; Status DC Sodium Chloride (Iv Sodium Chloride 0.9% 1000ml Bag) 1,000 ml @ 50 mls/hr Q20H IV Last administered on 07/13/16 13:26; Start 07/13/16 at 13:15 Active Scripts Active Percocet 5-325 Mg Tablet (Oxycodone/Acetaminophen) 1 Each Tablet 1 Tab PO PRN Q6HRS PRN Levaquin (Levofloxacin) 500 Mg Tablet 1 Tab PO DAILY Reported Probiotic (Lactobacillus Combo No.11) 1 Each Cap.sprink 1 Each PO DAILY Metformin Hcl 500 Mg Tablet 1 Tab PO BID Vitals/I & O Vital Sign - Last 24 Hours 07/12/16 07/12/16 07/12/16 07/12/16 16:00 16:05 17:04 17:18 Temp 98.8 98.8 Pulse 98 105 Resp 19 12 20 18 B/P 113/60 129/69 Pulse Ox 93 96 O2 Delivery Nasal Cannula O2 Flow Rate 2.0 2.0 07/12/16 07/12/16 07/12/16 07/12/16 18:19 19:00 20:00 20:10 Temp 99.0 99.0 Pulse 105 Resp 18 B/P 131/82 Pulse Ox 92 96 O2 Delivery Nasal Cannula Nasal Cannula Nasal Cannula Nasal Cannula O2 Flow Rate 2.0 2.0 2.0 2.0 07/12/16 07/13/16 07/13/16 07/13/16 23:00 00:16 00:46 03:00 Temp 101.5 101.7 101.5 101.7 Pulse 103 104 Resp 18 18 B/P 116/62 117/69 Pulse Ox 94 94 94 93 O2 Delivery Nasal Cannula Nasal Cannula Nasal Cannula O2 Flow Rate 2.0 2.0 2.0 07/13/16 07/13/16 07/13/16 07/13/16 03:44 04:14 07:00 07:34 Temp 98.4 98.4 Pulse 104 Resp 18 18 B/P 100/57 Pulse Ox 94 94 94 O2 Delivery Nasal Cannula Nasal Cannula Nasal Cannula O2 Flow Rate 2.0 2.0 2.0 07/13/16 07/13/16 07/13/16 07/13/16 08:00 08:04 09:33 10:06 Resp 18 O2 Delivery Nasal Cannula Nasal Cannula Nasal Cannula O2 Flow Rate 2.0 2.0 2.0 2.0 07/13/16 07/13/16 07/13/16 07/13/16 10:36 11:00 12:19 14:05 Temp 99.1 99.1 Pulse 97 Resp 18 20 20 18 B/P 130/72 Pulse Ox 90 O2 Delivery Nasal Cannula Room Air Nasal Cannula Nasal Cannula O2 Flow Rate 2.0 2.0 2.0 Intake and Output 07/12/16 07/12/16 07/13/16 15:00 23:00 07:00 Intake Total 1000 ml 1820 ml Output Total 200 ml 400 ml Balance 1000 ml 1620 ml -400 ml NANY CROWLEY III DO Jul 13, 2016 15:15
[2016-07-13] MEDS: IBUPROFEN 600 MG TABLET. PO PRN (16:19)
[2016-07-13] MEDS ORDERED: DEXTROSE 50% 25 GM / 50ML DISP.SYRIN. IV PRN (16:30)
[2016-07-13] MEDS: INSULIN ASPART 300 UNITS/3 ML INSULN.PEN SQ SCH (17:18)
[2016-07-13 19:00] VITALS: BP 94/60
[2016-07-13 20:55] LABS: BILIRUBIN,URINE NEGATIVE (NEG); GLUCOSE,URINE NEGATIVE (NEG); NITRITE,URINE NEGATIVE (NEG); PROTEIN,URINE NEGATIVE (NEG-TRACE); UROBILINOGEN,URINE 0.2 mg/dL (0.2 mg/dL)
[2016-07-13 21:05] LABS: BACTERIA,URINE FEW /HPF (0-FEW); RBC,URINE 0 /HPF (0-2); SQUAMOUS EPITHELIAL CELL,UR MOD /LPF; WBC,URINE OCC /HPF (0-4)
[2016-07-13 23:00] VITALS: BP 114/61
[2016-07-14] MEDS: FENTANYL PF 100 MCG/2 ML VIAL. IV PRN ×8 (02:40→22:02)
[2016-07-14 03:00] VITALS: BP 130/69
[2016-07-14 05:55] LABS: BASO % 0 % (0-3); EOS % 2 % (0-3); HEMATOCRIT 32.6 % (36.0-47.0); LYMPH # 0.5 x10^3/uL (1.0-4.8); LYMPH % 5 % (24-48); MEAN CORPUSCULAR HEMOGLOBIN 34 pg (25-35); MEAN CORPUSCULAR HGB CONC 34 g/dL (31-37); MEAN CORPUSCULAR VOLUME 100 fL (79-100); MONO % 7 % (0-9); NEUT % 85 % (31-73); PLATELET COUNT 95 x10^3/uL (140-400); RED BLOOD COUNT 3.25 x10^6/uL (3.50-5.40); RED CELL DISTRIBUTION WIDTH 15.6 % (11.5-14.5); WHITE BLOOD COUNT 10.1 x10^3/uL (4.0-11.0)
[2016-07-14 06:20] LABS: GFR 56.4; POTASSIUM 3.8 mmol/L (3.5-5.1)
[2016-07-14 06:24] LABS: INR 1.8 (0.8-1.1); PROTHROMBIN TIME PATIENT 19.6 SEC (11.7-14.0)
[2016-07-14 07:30] VITALS: BP 98/54
[2016-07-14] MEDS: INSULIN ASPART 300 UNITS/3 ML INSULN.PEN SQ SCH ×3 (08:00→17:10)
[2016-07-14] MEDS: IV NORMAL SALINE 1000ML BAG 1,000 ML IV SCH (08:25)
--- NOTE | 2016-07-14 08:33 | PDOC ---
Provider Note Provider Note IR Note: Asked to consider paracentesis----thank you. 60 YO female with hep C and cirrhosis. C/o abdominal pain and tightness----however PMC CT abd/pelvis from 07/12/16 revealed only small amount of ascites about liver and within low pelvis. No indication for therapeutic paracentesis. If SBP is a consideration, a small amount of fluid could be aspirated for cell count and micro. Let me know. Will follow. STEVE KOHLER MD Jul 14, 2016 08:33
--- NOTE | 2016-07-14 09:17 | PDOC2 ---
GI CONSULT Reason For Consult: Abdominal pain HPI: HPI: 60 y/o female evaluated in the ER on 07/12/16. GI history significant for Hep C w/ cirrhosis and varices. She does not follow w/ anyone for this but has had previous EGD and colonoscopy (reportedly showing polyps and diverticulosis) in [place] ~5 years ago. Additional h/o occasional GERD and constipation. On this occasion reports periumbilical pain around previous umbilical hernia repair. She has a h/o pain in this region but describes a specific moment on 07/12 while getting out of her car at the grocery store; she twisted and had a sensation of a "knife in her stomach." She has also felt bloated, noted some increased constipation, and feels like her legs are swollen. At home she takes magnesium , probiotics, aloe vera juice, and fiber to help with constipation. Latest labs show WBC 10.1, Hgb 11, plt 95, INR 1.8, bili 3.5, AST 47, ALT 35, Alk Phos 119, ammonia 38. CT A/P showed cirrhosis, portal hypertension, abdominal and pelvic ascites, gallbladder hydrops w/ cholelithiasis, and colonic wall thickening (particularly ascending). Dr. Zamora has seen re: possible therapeutic paracentesis; procedure cancelled due to minimal amount of ascites. PMH: PMH: DM, hysterectomy, appendectomy, hand surgery, previous IVDU FH: Family History: No pertinent hx Social History: Smoke: <1 pack per day ALCOHOL: occassional (2 drinks weekly, previously more) Drugs: Marijuana, Other (h/o IVDU) ROS: GEN: Denies fevers, chills, sweats HEENT: Denies blurred vision, sore throat CV: Denies chest pain RESP: Denies shortness of air, cough GI: Per HPI : Denies hematuria, dysuria ENDO: Denies weight changes NEURO: Denies confusion, dizziness MSK: Denies weakness, joint pain/swelling SKIN: Denies jaundice, pruritus VItals: Vitals: Vital Signs Date Time Temp Pulse Resp B/P Pulse Ox O2 Delivery O2 Flow Rate FiO2 07/14/16 08:21 Nasal Cannula 2.0 07/14/16 07:30 98.1 113 18 98/54 92 98.1 Labs: Labs: Laboratory Tests Test 07/13/16 11:16 07/13/16 13:05 07/13/16 16:03 07/13/16 18:00 Glucose (Fingerstick) 186mg/dL (70-99) 203mg/dL (70-99) Prothrombin Time 20.5SEC (11.7-14.0) Prothromb Time International Ratio 1.9 (0.8-1.1) Urine Collection Type Unknown Urine Color [place] Urine Clarity Clear Urine pH 6.0 Urine Specific [place] >=1.030 Urine Protein Negativemg/dL (NEG-TRACE) Urine Glucose (UA) Negativemg/dL (NEG) Urine Ketones (Stick) Negativemg/dL (NEG) Urine Blood Negative (NEG) Urine Nitrite Negative (NEG) Urine Bilirubin Negative (NEG) Urine Urobilinogen Dipstick 0.2mg/dL (0.2 mg/dL) Urine Leukocyte Esterase Negative (NEG) Urine RBC 0/HPF (0-2) Urine WBC Occ/HPF (0-4) Urine Squamous Epithelial Cells Mod/LPF Urine Bacteria Few/HPF (0-FEW) Test 07/13/16 20:54 07/14/16 05:30 07/14/16 07:32 Glucose (Fingerstick) 138mg/dL (70-99) 124mg/dL (70-99) White Blood Count 10.1x10^3/uL (4.0-11.0) Red Blood Count 3.25x10^6/uL (3.50-5.40) Hemoglobin 11.0g/dL (12.0-15.5) Hematocrit 32.6% (36.0-47.0) Mean Corpuscular Volume 100fL (79-100) Mean Corpuscular Hemoglobin 34pg (25-35) Mean Corpuscular Hemoglobin Concent 34g/dL (31-37) Red Cell Distribution Width 15.6% (11.5-14.5) Platelet Count 95x10^3/uL (140-400) Neutrophils (%) (Auto) 85% (31-73) Lymphocytes (%) (Auto) 5% (24-48) Monocytes (%) (Auto) 7% (0-9) Eosinophils (%) (Auto) 2% (0-3) Basophils (%) (Auto) 0% (0-3) Neutrophils # (Auto) 8.6x10^3uL (1.8-7.7) Lymphocytes # (Auto) 0.5x10^3/uL (1.0-4.8) Monocytes # (Auto) 0.7x10^3/uL (0.0-1.1) Eosinophils # (Auto) 0.2x10^3/uL (0.0-0.7) Basophils # (Auto) 0.0x10^3/uL (0.0-0.2) Prothrombin Time 19.6SEC (11.7-14.0) Prothromb Time International Ratio 1.8 (0.8-1.1) Sodium Level 134mmol/L (136-145) Potassium Level 3.8mmol/L (3.5-5.1) Chloride Level 101mmol/L (98-107) Carbon Dioxide Level 24mmol/L (21-32) Anion Gap 9 (6-14) Blood Urea Nitrogen 12mg/dL (7-20) Creatinine 1.0mg/dL (0.6-1.0) Estimated GFR (Cockcroft-Gault) 56.4 Glucose Level 121mg/dL (70-99) Calcium Level 8.0mg/dL (8.5-10.1) Allergies: Coded Allergies: Sulfa (Sulfonamide Antibiotics) (Verified Allergy, Intermediate, 07/12/16) acetaminophen (Verified Allergy, Intermediate, cirrhosis, 07/13/16) codeine (Verified Allergy, Intermediate, 07/12/16) Medications: Current Medications Medications (Trade) Dose Ordered Sig/[place] Route PRN Reason Start Time Stop Time Status Last Admin Dose Admin Ceftriaxone Sodium/Sodium Chloride (Rocephin/Iv Sodium Chloride 0.9% 50ml) 50 ml @ 100 mls/hr Q24H IV 07/13/16 15:00 07/13/16 14:06 Magnesium Hydroxide 2400 mg 2,400 mg 1X ONCE PO 07/13/16 12:00 07/13/16 12:01 DC 07/13/16 12:10 Sodium Chloride (Iv Sodium Chloride 0.9% 1000ml Bag) 1,000 ml @ 50 mls/hr Q20H IV 07/13/16 13:15 07/14/16 08:25 Ibuprofen (Motrin) 600 mg PRN Q6HRS PRN PO INFLAMMATION 07/13/16 15:00 07/13/16 16:19 Fentanyl Citrate (Fentanyl 2ml Vial) 50 mcg PRN Q2HR PRN IV PAIN 07/13/16 16:15 07/14/16 08:21 Insulin Aspart (Novolog) 0-5 UNITS TIDWMEALS SQ 07/13/16 17:00 07/13/16 17:18 Imaging: Imaging: CT A/P w/ IV contrast Impression: 1. Bibasilar atelectasis. 2. Findings consistent with cirrhosis and portal hypertension with abdominal and pelvic ascites. 3. Gallbladder hydrops and cholelithiasis. 4. Colonic wall thickening and pericolonic inflammation, particularly involving the ascending colon. This is consistent with a nonspecific colitis. No abscess formation or free air is identified. PE: GEN: NAD HEENT: Atraumatic, PERRL LUNGS: clear anteriorly w/ nasal cannula HEART: tachycardic ABD: tender diffusely to light palpation, firm ball superior to umbilicus, BS+ EXTREMITY: BLE edema SKIN: No rashes, no jaundice NEURO/PSYCH: A & O 3 A/P: A/P: Abd pain -h/o umbilical hernia repair -gallbladder hydrops and cholelithiasis on CT Cirrhosis -h/o Hep C, IVDU, varices -CT w/ cirrhosis, portal hypertension, ascites - - > no indication for therapeutic paracentesis per IR Abnormal LFTs -bili 3.5 Constipation GERD -more bothersome lately CRC screen, h/o colon polyps -last colonoscopy ~5 years ago in [place] -- Will treat constipation and recheck LFTs. Add PPI for GERD, also note on ibuprofen. QING REYES Jul 14, 2016 09:17
[2016-07-14] MEDS ORDERED: LACTULOSE 20 GM/30 ML SOLUTION. PO PRN (09:45)
[2016-07-14] MEDS: POLYETHYLENE GLYCOL 3350 17 GM PACKET. PO SCH ×2 (10:00→21:59)
[2016-07-14] MEDS ORDERED: PHYTONADIONE 10 MG/ML AMPUL. SQ ONE (10:00)
[2016-07-14 10:03] LABS: ALBUMIN 2.1 g/dL (3.4-5.0); DIRECT BILIRUBIN 1.8 mg/dL (0.0-0.2); TOTAL BILIRUBIN 2.6 mg/dL (0.2-1.0); TOTAL PROTEIN 5.8 g/dL (6.4-8.2)
[2016-07-14 10:35] VITALS: BP 120/70
[2016-07-14] MEDS: PANTOPRAZOLE 40 MG TABLET. PO SCH (10:47)
[2016-07-14] MEDS: LUBIPROSTONE 8 MCG CAPSULE PO SCH ×2 (10:48→17:06)
--- NOTE | 2016-07-14 12:26 | PDOC ---
PROGRESS NOTES Chief Complaint Chief Complaint Abdominal pain ASSESSMENT AND PLAN: 1. Constipation: apparently chronic. on lubiprostone and macrobiotics. GI consult appreciated! 2. Ascites: insufficient amounts for tap 3. Cirrhosis: 2/2 HCV (+/- EtOH). known varices 4. Thrombocytopenia: chronic 2/2 above 5. UTI: not confirmed by culture, only urogenital julia. ceftriaxone stopped 6. DM2: on metformin at home. cont here, add ISS 7. Hx multi-drug abuse, incl IVDA Vitals Vitals Vital Signs Date Time Temp Pulse Resp B/P Pulse Ox O2 Delivery O2 Flow Rate FiO2 07/14/16 11:19 Nasal Cannula 2.0 07/14/16 10:35 97.9 111 18 120/70 93 97.9 Physical Exam General: Alert, Oriented X3, Cooperative, No acute distress Heart: Regular rate, Normal S1, Normal S2, No murmurs Lungs: Clear Abdomen: Normal bowel sounds, Other (distended, anacerca) Extremities: No clubbing, No cyanosis, No edema Skin: No rashes, No breakdown Labs LABS Laboratory Tests Test 07/13/16 13:05 07/13/16 16:03 07/13/16 18:00 07/13/16 20:54 Prothrombin Time 20.5SEC (11.7-14.0) Prothromb Time International Ratio 1.9 (0.8-1.1) Glucose (Fingerstick) 203mg/dL (70-99) 138mg/dL (70-99) Urine Collection Type Unknown Urine Color Roxy Urine Clarity Clear Urine pH 6.0 Urine Specific [place] >=1.030 Urine Protein Negativemg/dL (NEG-TRACE) Urine Glucose (UA) Negativemg/dL (NEG) Urine Ketones (Stick) Negativemg/dL (NEG) Urine Blood Negative (NEG) Urine Nitrite Negative (NEG) Urine Bilirubin Negative (NEG) Urine Urobilinogen Dipstick 0.2mg/dL (0.2 mg/dL) Urine Leukocyte Esterase Negative (NEG) Urine RBC 0/HPF (0-2) Urine WBC Occ/HPF (0-4) Urine Squamous Epithelial Cells Mod/LPF Urine Bacteria Few/HPF (0-FEW) Test 07/14/16 05:30 07/14/16 07:32 07/14/16 11:38 White Blood Count 10.1x10^3/uL (4.0-11.0) Red Blood Count 3.25x10^6/uL (3.50-5.40) Hemoglobin 11.0g/dL (12.0-15.5) Hematocrit 32.6% (36.0-47.0) Mean Corpuscular Volume 100fL (79-100) Mean Corpuscular Hemoglobin 34pg (25-35) Mean Corpuscular Hemoglobin Concent 34g/dL (31-37) Red Cell Distribution Width 15.6% (11.5-14.5) Platelet Count 95x10^3/uL (140-400) Neutrophils (%) (Auto) 85% (31-73) Lymphocytes (%) (Auto) 5% (24-48) Monocytes (%) (Auto) 7% (0-9) Eosinophils (%) (Auto) 2% (0-3) Basophils (%) (Auto) 0% (0-3) Neutrophils # (Auto) 8.6x10^3uL (1.8-7.7) Lymphocytes # (Auto) 0.5x10^3/uL (1.0-4.8) Monocytes # (Auto) 0.7x10^3/uL (0.0-1.1) Eosinophils # (Auto) 0.2x10^3/uL (0.0-0.7) Basophils # (Auto) 0.0x10^3/uL (0.0-0.2) Prothrombin Time 19.6SEC (11.7-14.0) Prothromb Time International Ratio 1.8 (0.8-1.1) Sodium Level 134mmol/L (136-145) Potassium Level 3.8mmol/L (3.5-5.1) Chloride Level 101mmol/L (98-107) Carbon Dioxide Level 24mmol/L (21-32) Anion Gap 9 (6-14) Blood Urea Nitrogen 12mg/dL (7-20) Creatinine 1.0mg/dL (0.6-1.0) Estimated GFR (Cockcroft-Gault) 56.4 Glucose Level 121mg/dL (70-99) Calcium Level 8.0mg/dL (8.5-10.1) Total Bilirubin 2.6mg/dL (0.2-1.0) Direct Bilirubin 1.8mg/dL (0.0-0.2) Aspartate Amino Transf (AST/SGOT) 52U/L (15-37) Alanine Aminotransferase (ALT/SGPT) 35U/L (14-59) Alkaline Phosphatase 118U/L (46-116) Total Protein 5.8g/dL (6.4-8.2) Albumin 2.1g/dL (3.4-5.0) Glucose (Fingerstick) 124mg/dL (70-99) 171mg/dL (70-99) Review of Systems Review of Systems very anxious, wants "inventory of what's going on with me". abd discomfort Comment Review of Relevant ISACC SAGASTUME MD Jul 14, 2016 12:26
[2016-07-14] MEDS: LACTOBACILLUS ACIDOPH & BULGAR 1 TABLET. PO SCH (13:49)
[2016-07-14 15:00] VITALS: BP 120/63
[2016-07-14] MEDS: CEFTRIAXONE SODIUM 1 GM in IV NORMAL SALINE 50ML 50 ML IV SCH (15:14)
--- NOTE | 2016-07-14 16:06 | RAD ---
INDICATION:abd pain, cirrhosis, r/o thrombosis COMPARISON: 07/12/2016 CT Spectral Doppler color and grayscale ultrasound images are obtained through the hepatic and portal vein vasculature. FINDINGS: Umbilical vein is patent. Hepatic veins are patent and hepatofugal. Portal veins are patent and hepatopedal. Main portal vein is 2 cm. Incidental note is made of cholelithiasis with contracted gallbladder. IMPRESSION: The visualized portions of the portal vein appear patent. Contracted gallbladder with gallstones seen. The wall is prominent in thickness as well but difficult to tell how much of this is secondary to contraction, and how much is secondary to real wall thickening. Recanalized umbilical vein which can be seen with portal hypertension.
[2016-07-14 17:04] LABS: % BASOS 1 % (0-3); % EOS 4 % (0-5)
[2016-07-14] MEDS: METFORMIN 500 MG TABLET. PO SCH (17:05)
[2016-07-14 17:06] LABS: PLT ESTIMATE DECREASED (ADEQUATE); POLYCHROMASIA SLIGHT; TOXIC GRANULATION MOD; TOXIC VACUOLATION MOD
[2016-07-14] MEDS: IBUPROFEN 600 MG TABLET. PO PRN (17:06)
[2016-07-14 19:00] VITALS: BP 97/61
[2016-07-14 23:00] VITALS: BP 110/61
[2016-07-15] VITALS (7 sets, daily range): BP systolic 87–136; BP diastolic 45–75
[2016-07-15] MEDS: FENTANYL PF 100 MCG/2 ML VIAL. IV PRN ×4 (00:06→12:47)
[2016-07-15] MEDS: IV NORMAL SALINE 1000ML BAG 1,000 ML IV SCH (04:22)
[2016-07-15 06:17] LABS: BASO % 0 % (0-3); EOS % 3 % (0-3); HEMATOCRIT 32.8 % (36.0-47.0); HEMOGLOBIN 10.9 g/dL (12.0-15.5); LYMPH # 0.9 x10^3/uL (1.0-4.8); LYMPH % 7 % (24-48); MEAN CORPUSCULAR HEMOGLOBIN 34 pg (25-35); MEAN CORPUSCULAR HGB CONC 33 g/dL (31-37); MEAN CORPUSCULAR VOLUME 102 fL (79-100); MONO % 9 % (0-9); NEUT % 80 % (31-73); PLATELET COUNT 118 x10^3/uL (140-400); RED BLOOD COUNT 3.24 x10^6/uL (3.50-5.40); RED CELL DISTRIBUTION WIDTH 15.6 % (11.5-14.5); WHITE BLOOD COUNT 12.8 x10^3/uL (4.0-11.0)
[2016-07-15 06:29] LABS: CALCIUM 8.3 mg/dL (8.5-10.1); CREATININE 1.1 mg/dL (0.6-1.0); GFR 50.5; POTASSIUM 3.7 mmol/L (3.5-5.1)
[2016-07-15] MEDS: PANTOPRAZOLE 40 MG TABLET. PO SCH (07:42)
[2016-07-15] MEDS: INSULIN ASPART 300 UNITS/3 ML INSULN.PEN SQ SCH ×3 (08:00→17:00)
[2016-07-15] MEDS: LACTOBACILLUS ACIDOPH & BULGAR 1 TABLET. PO SCH (08:49)
[2016-07-15] MEDS: METFORMIN 500 MG TABLET. PO SCH ×2 (08:49→17:00)
[2016-07-15] MEDS: POLYETHYLENE GLYCOL 3350 17 GM PACKET. PO SCH (08:50)
[2016-07-15] MEDS: LUBIPROSTONE 8 MCG CAPSULE PO SCH ×2 (08:50→17:00)
[2016-07-15 08:52] LABS: INR 1.8 (0.8-1.1); PROTHROMBIN TIME PATIENT 19.5 SEC (11.7-14.0)
--- NOTE | 2016-07-15 10:52 | PDOC ---
Subjective: Subjective: Less abd pain but more bloating w/ some SOA. More swelling in legs. Not eating that much. Says has had three small stools since yesterday - unclear if her pain has improved because of this. Concerned about ongoing symptoms. Objective: Objective: Per RN - pt c/o pain, reports 3 BMs since yesterday, seems to not remember what has been explained to her. Vital Signs: Vital Signs Date Time Temp Pulse Resp B/P Pulse Ox O2 Delivery O2 Flow Rate FiO2 07/15/16 08:23 18 94 Nasal Cannula 2.0 07/15/16 07:43 97.9 100 133/63 97.9 Labs: Laboratory Tests Test 07/14/16 11:38 07/14/16 16:22 07/14/16 21:14 07/15/16 05:10 Glucose (Fingerstick) 171mg/dL 204mg/dL 185mg/dL White Blood Count 12.8x10^3/uL Red Blood Count 3.24x10^6/uL Hemoglobin 10.9g/dL Hematocrit 32.8% Mean Corpuscular Volume 102fL Mean Corpuscular Hemoglobin 34pg Mean Corpuscular Hemoglobin Concent 33g/dL Red Cell Distribution Width 15.6% Platelet Count 118x10^3/uL Neutrophils (%) (Auto) 80% Lymphocytes (%) (Auto) 7% Monocytes (%) (Auto) 9% Eosinophils (%) (Auto) 3% Basophils (%) (Auto) 0% Neutrophils # (Auto) 10.3x10^3uL Lymphocytes # (Auto) 0.9x10^3/uL Monocytes # (Auto) 1.1x10^3/uL Eosinophils # (Auto) 0.4x10^3/uL Basophils # (Auto) 0.0x10^3/uL Sodium Level 132mmol/L Potassium Level 3.7mmol/L Chloride Level 98mmol/L Carbon Dioxide Level 22mmol/L Anion Gap 12 Blood Urea Nitrogen 15mg/dL Creatinine 1.1mg/dL Estimated GFR (Cockcroft-Gault) 50.5 Glucose Level 162mg/dL Calcium Level 8.3mg/dL Test 07/15/16 07:45 07/15/16 07:55 Glucose (Fingerstick) 148mg/dL Prothrombin Time 19.5SEC Prothromb Time International Ratio 1.8 Imaging: Abd Doppler 07/14/16 IMPRESSION: The visualized portions of the portal vein appear patent. Contracted gallbladder with gallstones seen. The wall is prominent in thickness as well but difficult to tell how much of this is secondary to contraction, and how much is secondary to real wall thickening. Recanalized umbilical vein which can be seen with portal hypertension. PE: GEN: NAD LUNGS: clear bilaterally HEART: RRR ABD: increased distention, periumbilical region less tender, some LLQ tenderness EXTREMITY: BLE pitting edema NEURO/PSYCH: tearful A/P: Cirrhosis -reports h/o Hep C, varices -CT 07/12 w/ cirrhosis, portal hypertension, ascites - - > no indication for therapeutic paracentesis per IR on 07/14 -doppler w/ patent portal vein 07/14 -INR 1.8, plt 116 -bili 3.5 to 2.6 Bloating/abd distention, LE edema -Cr 1.1 Periumbilical pain - improved -h/o umb hernia repair -h/o GERD on PPI -cholelithiasis on imaging, borderline GB wall thickening Constipation -reports small stools w/ Miralax BID, Amitiza BID, lactulose PRN, probiotics -- Reviewed w/ Dr. Stewart - will start Aldactone w/ fluid retention, check abd US to further assess CBD, continue no added salt diet. Continue constipation treatment. QING REYES Jul 15, 2016 10:52
[2016-07-15] MEDS: CEFTRIAXONE SODIUM 1 GM in IV NORMAL SALINE 50ML 50 ML IV SCH (12:46)
[2016-07-15] MEDS: SPIRONOLACTONE 25 MG TABLET PO SCH (12:46)
[2016-07-15] MEDS: IBUPROFEN 600 MG TABLET. PO PRN (12:53)
--- NOTE | 2016-07-15 15:16 | PDOC ---
PROGRESS NOTES Chief Complaint Chief Complaint Abdominal pain ASSESSMENT AND PLAN: 1. Constipation: apparently chronic. on lubiprostone and macrobiotics. good BM this morning 2. Ascites: insufficient amounts for tap. on spironolactone 3. [place]: appears worse. stop IVF, add lasix x1 4. Cirrhosis: 2/2 HCV (+/- EtOH). known varices 5. Thrombocytopenia: chronic 2/2 above 6. Hyperbilirubinemia: improving. continue to monitor 7. Pancreatic insufficiency: 2/2 Khoi-en-Y. start pancrease enzyme replacement w/ PO intake 8. UTI: not confirmed by culture, only urogenital julia. 9. DM2: on metformin at home. cont here, also ISS 10. Protein malnutrition: malabsorption, liver dz... encourage supplements with high protein content, protein-rich diet. 11. Hx multi-drug abuse, incl IVDA 12. Abd pain: prob multifactorial. requests stronger pain med. d/w her use of narcotics. low dose only to prevent further worsening of constipation 13. Dispo: prob home in AM Vitals Vitals Vital Signs Date Time Temp Pulse Resp B/P Pulse Ox O2 Delivery O2 Flow Rate FiO2 07/15/16 13:10 20 90 Nasal Cannula 2.0 07/15/16 10:58 96.6 111 131/71 96.6 Physical Exam General: Alert, Oriented X3, Cooperative, No acute distress Heart: Regular rate, Normal S1, Normal S2, No murmurs Lungs: Clear Abdomen: Other (moderate ascites) Extremities: No clubbing, No cyanosis, No edema Skin: No rashes, No breakdown Labs LABS Laboratory Tests Test 07/14/16 16:22 07/14/16 21:14 07/15/16 05:10 07/15/16 07:45 Glucose (Fingerstick) 204mg/dL (70-99) 185mg/dL (70-99) 148mg/dL (70-99) White Blood Count 12.8x10^3/uL (4.0-11.0) Red Blood Count 3.24x10^6/uL (3.50-5.40) Hemoglobin 10.9g/dL (12.0-15.5) Hematocrit 32.8% (36.0-47.0) Mean Corpuscular Volume 102fL (79-100) Mean Corpuscular Hemoglobin 34pg (25-35) Mean Corpuscular Hemoglobin Concent 33g/dL (31-37) Red Cell Distribution Width 15.6% (11.5-14.5) Platelet Count 118x10^3/uL (140-400) Neutrophils (%) (Auto) 80% (31-73) Lymphocytes (%) (Auto) 7% (24-48) Monocytes (%) (Auto) 9% (0-9) Eosinophils (%) (Auto) 3% (0-3) Basophils (%) (Auto) 0% (0-3) Neutrophils # (Auto) 10.3x10^3uL (1.8-7.7) Lymphocytes # (Auto) 0.9x10^3/uL (1.0-4.8) Monocytes # (Auto) 1.1x10^3/uL (0.0-1.1) Eosinophils # (Auto) 0.4x10^3/uL (0.0-0.7) Basophils # (Auto) 0.0x10^3/uL (0.0-0.2) Sodium Level 132mmol/L (136-145) Potassium Level 3.7mmol/L (3.5-5.1) Chloride Level 98mmol/L (98-107) Carbon Dioxide Level 22mmol/L (21-32) Anion Gap 12 (6-14) Blood Urea Nitrogen 15mg/dL (7-20) Creatinine 1.1mg/dL (0.6-1.0) Estimated GFR (Cockcroft-Gault) 50.5 Glucose Level 162mg/dL (70-99) Calcium Level 8.3mg/dL (8.5-10.1) Test 07/15/16 07:55 07/15/16 11:35 Prothrombin Time 19.5SEC (11.7-14.0) Prothromb Time International Ratio 1.8 (0.8-1.1) Glucose (Fingerstick) 174mg/dL (70-99) Review of Systems Review of Systems belly more distended, therefore more painful as well Comment Review of Relevant ISACC SAGASTUME MD Jul 15, 2016 15:16
[2016-07-15] MEDS: OXYCODONE/APAP 5/325 TABLET. PO PRN ×2 (15:18→22:24)
[2016-07-15] MEDS ORDERED: FUROSEMIDE 20 MG/2 ML VIAL IVP ONE (15:30)
[2016-07-15] MEDS: LIPASE/PROTEAS/AMYLAS 10/34/55 CAPSULE.DR. PO SCH (17:00)
[2016-07-15] MEDS ORDERED: IBUPROFEN 400 MG TABLET. PO PRN (18:15)
[2016-07-16] MEDS: POLYETHYLENE GLYCOL 3350 17 GM PACKET. PO SCH ×3 (03:54→21:04)
[2016-07-16 05:37] LABS: BASO % 0 % (0-3); EOS % 3 % (0-3); HEMATOCRIT 35.2 % (36.0-47.0); LYMPH % 7 % (24-48); MEAN CORPUSCULAR HEMOGLOBIN 34 pg (25-35); MEAN CORPUSCULAR HGB CONC 34 g/dL (31-37); MEAN CORPUSCULAR VOLUME 98 fL (79-100); MONO % 13 % (0-9); NEUT % 78 % (31-73); PLATELET COUNT 139 x10^3/uL (140-400); RED BLOOD COUNT 3.58 x10^6/uL (3.50-5.40); RED CELL DISTRIBUTION WIDTH 15.3 % (11.5-14.5); WHITE BLOOD COUNT 14.5 x10^3/uL (4.0-11.0)
[2016-07-16 05:52] LABS: ALBUMIN 2.1 g/dL (3.4-5.0); DIRECT BILIRUBIN 1.8 mg/dL (0.0-0.2); TOTAL BILIRUBIN 2.5 mg/dL (0.2-1.0); TOTAL PROTEIN 6.5 g/dL (6.4-8.2)
[2016-07-16 07:00] VITALS: BP 129/71
--- NOTE | 2016-07-16 07:15 | RAD ---
Abdominal ultrasound, 07/15/2016: History: Gallstones, abdominal pain, cirrhosis The gallbladder nelson are moderately thickened measuring approximately 8 mm. There are echogenic foci within the gallbladder with posterior acoustic shadowing compatible with cholelithiasis. The gallbladder is not distended. No bile duct dilatation is seen. The hepatic contour is irregular compatible with cirrhosis. No hepatic mass is seen. Prominent collateral veins are again noted at the hepatic hilum with recanalization of the umbilical vein presumably due to portal hypertension. These findings were well demonstrated on the recent CT study. The pancreas and much of the abdominal aorta and inferior vena cava were obscured by overlying bowel. The spleen is near the upper limits of normal in size measuring 12.9 cm in length. The kidneys are unremarkable. A small volume of ascites is present. IMPRESSION: 1. Hepatic cirrhosis with evidence of portal hypertension. 2. Cholelithiasis with moderate gallbladder wall thickening. The wall thickening can be secondary to the hepatic disease, hypoproteinemia or cholecystitis. 3. Ascites.
[2016-07-16] MEDS: LACTOBACILLUS ACIDOPH & BULGAR 1 TABLET. PO SCH (09:40)
[2016-07-16] MEDS: PANTOPRAZOLE 40 MG TABLET. PO SCH (09:40)
[2016-07-16] MEDS: LUBIPROSTONE 8 MCG CAPSULE PO SCH ×2 (09:40→17:00)
[2016-07-16] MEDS: SPIRONOLACTONE 25 MG TABLET PO SCH (09:40)
[2016-07-16] MEDS: LIPASE/PROTEAS/AMYLAS 10/34/55 CAPSULE.DR. PO SCH ×3 (09:40→17:00)
[2016-07-16] MEDS: METFORMIN 500 MG TABLET. PO SCH ×2 (09:40→16:42)
[2016-07-16] MEDS: OXYCODONE/APAP 5/325 TABLET. PO PRN ×3 (09:46→21:03)
[2016-07-16] MEDS: INSULIN ASPART 300 UNITS/3 ML INSULN.PEN SQ SCH ×3 (09:49→17:00)
[2016-07-16 11:03] VITALS: BP 130/74
[2016-07-16 11:17] LABS: ALBUMIN 2.2 g/dL (3.4-5.0); ALBUMIN/GLOBULIN RATIO 0.5 (1.0-1.7); CALCIUM 8.8 mg/dL (8.5-10.1); CREATININE 1.5 mg/dL (0.6-1.0); GFR 35.3; POTASSIUM 3.8 mmol/L (3.5-5.1); TOTAL BILIRUBIN 2.5 mg/dL (0.2-1.0); TOTAL PROTEIN 6.3 g/dL (6.4-8.2)
--- NOTE | 2016-07-16 12:07 | PDOC ---
Subjective: Subjective: Feels more distended w/ increased swelling in feet/legs. BM this morning - having to strain w/ streaks of blood on toilet tissue similar to previous hemorrhoid flares. Abd pain stable, eating a little. Objective: Objective: Per RN - ongoing edema, stooling this a.m., eating some, asking for paracentesis. Vital Signs: Vital Signs Date Time Temp Pulse Resp B/P Pulse Ox O2 Delivery O2 Flow Rate FiO2 07/16/16 11:03 97.7 130/74 97.7 07/16/16 11:02 Room Air 07/16/16 07:00 117 20 91 2.0 Labs: Laboratory Tests Test 07/15/16 16:34 07/15/16 20:58 Glucose (Fingerstick) 147mg/dL (70-99) 158mg/dL (70-99) Imaging: Abd US 07/15/16 IMPRESSION: 1. Hepatic cirrhosis with evidence of portal hypertension. 2. Cholelithiasis with moderate gallbladder wall thickening. The wall thickening can be secondary to the hepatic disease, hypoproteinemia or cholecystitis. 3. Ascites. PE: GEN: NAD, up to chair, walks to bed LUNGS: CTAB HEART: tachycardic ABD: BS+, distended, tight, vaguely tender throughout EXTREM: pitting edema NEURO/PSYCH: A & O 3 OTHER: declines rectal exam A/P: Cirrhosis -h/o Hep C, varices -CT 07/12 w/ cirrhosis, portal hypertension, ascites - - > no indication for therapeutic paracentesis per IR on 07/14 -doppler w/ patent portal vein 07/14, US w/ cholelithiasis, moderate gallbladder wall thickening, and small volume ascites -INR 1.8, plt 139, bili 2.5, AFP WNL Abd distention/discomfort, LE edema -h/o umb hernia repair -h/o GERD on PPI -on Aldactone, also received Lasix yesterday -Cr from 1.1 to 1.5 today Leukocytosis -WBC from 12.8 to 14.5 Constipation -stooling w/ Miralax BID, Amitiza BID, lactulose PRN, probiotics - but straining -reports streaks of red blood on toilet tissue, h/o hemorrhoids -- Change lactulose from PRN to scheduled, add Colace. Start atbx (cover for possible SBP). Consult nephrology. Check KUB. Recheck ammonia and INR. QING REYES Jul 16, 2016 12:07
[2016-07-16] MEDS ORDERED: DOCUSATE SODIUM 100 MG CAPSULE PO PRN (13:00)
--- NOTE | 2016-07-16 13:34 | PDOC ---
PROGRESS NOTES Chief Complaint Chief Complaint Abdominal pain ASSESSMENT AND PLAN: 1. Constipation: apparently chronic. on lubiprostone and macrobiotics. good BM yesterday and today 2. Ascites: insufficient amounts for tap 2 days ago. on spironolactone. with worsening sx, recheck abd US 3. An[place]: appears worse. lasix trial yesterday with little improvement, but increased creat. 4. [place]: prob 2/2 lasix. no futher IV diuretic. hold off in IVF given anacerca. monitor creat 4. Cirrhosis: 2/2 HCV (+/- EtOH). known varices 5. Thrombocytopenia: chronic 2/2 above 6. Hyperbilirubinemia: improving. continue to monitor 7. Pancreatic insufficiency: 2/2 Khoi-en-Y. start pancrease enzyme replacement w/ PO intake 8. UTI: not confirmed by culture, only urogenital julia. 9. DM2: on metformin at home. cont here, also ISS 10. Protein malnutrition: malabsorption, liver dz... encourage supplements with high protein content, protein-rich diet. 11. Hx multi-drug abuse, incl IVDA 12. Abd pain: prob multifactorial. requests stronger pain med. d/w her use of narcotics. low dose only to prevent further worsening of constipation 13. Dispo: prob home soon Vitals Vitals Vital Signs Date Time Temp Pulse Resp B/P Pulse Ox O2 Delivery O2 Flow Rate FiO2 07/16/16 11:03 97.7 130/74 97.7 07/16/16 11:02 Room Air 07/16/16 07:00 117 20 91 2.0 Physical Exam General: Alert, Oriented X3, Cooperative, No acute distress Heart: Regular rate, Normal S1, Normal S2, No murmurs Lungs: Clear Abdomen: Normal bowel sounds, Other (distended, anacerca) Extremities: No clubbing, No cyanosis, No edema Skin: No rashes, No breakdown Labs LABS Laboratory Tests Test 07/15/16 16:34 07/15/16 20:58 07/16/16 04:33 Glucose (Fingerstick) 147mg/dL (70-99) 158mg/dL (70-99) White Blood Count 14.5x10^3/uL (4.0-11.0) Red Blood Count 3.58x10^6/uL (3.50-5.40) Hemoglobin 12.0g/dL (12.0-15.5) Hematocrit 35.2% (36.0-47.0) Mean Corpuscular Volume 98fL (79-100) Mean Corpuscular Hemoglobin 34pg (25-35) Mean Corpuscular Hemoglobin Concent 34g/dL (31-37) Red Cell Distribution Width 15.3% (11.5-14.5) Platelet Count 139x10^3/uL (140-400) Neutrophils (%) (Auto) 78% (31-73) Lymphocytes (%) (Auto) 7% (24-48) Monocytes (%) (Auto) 13% (0-9) Eosinophils (%) (Auto) 3% (0-3) Basophils (%) (Auto) 0% (0-3) Neutrophils # (Auto) 11.3x10^3uL (1.8-7.7) Lymphocytes # (Auto) 1.0x10^3/uL (1.0-4.8) Monocytes # (Auto) 1.8x10^3/uL (0.0-1.1) Eosinophils # (Auto) 0.4x10^3/uL (0.0-0.7) Basophils # (Auto) 0.0x10^3/uL (0.0-0.2) Sodium Level 132mmol/L (136-145) Potassium Level 3.8mmol/L (3.5-5.1) Chloride Level 99mmol/L (98-107) Carbon Dioxide Level 22mmol/L (21-32) Anion Gap 11 (6-14) Blood Urea Nitrogen 19mg/dL (7-20) Creatinine 1.5mg/dL (0.6-1.0) Estimated GFR (Cockcroft-Gault) 35.3 BUN/Creatinine Ratio 13 (6-20) Glucose Level 174mg/dL (70-99) Calcium Level 8.8mg/dL (8.5-10.1) Total Bilirubin 2.5mg/dL (0.2-1.0) Direct Bilirubin 1.8mg/dL (0.0-0.2) Aspartate Amino Transf (AST/SGOT) 64U/L (15-37) Alanine Aminotransferase (ALT/SGPT) 37U/L (14-59) Alkaline Phosphatase 308U/L (46-116) Total Protein 6.5g/dL (6.4-8.2) Albumin 2.1g/dL (3.4-5.0) Albumin/Globulin Ratio 0.5 (1.0-1.7) Review of Systems Review of Systems abd discomfort ongoing. more fatigued as well ISACC SAGASTUME MD Jul 16, 2016 13:33
--- NOTE | 2016-07-16 14:10 | RAD ---
KUB, 07/16/2016: History: Abdominal distention There is a small amount of gas in the GI tract in a nonspecific pattern. There is no evidence of organomegaly. Mild vascular calcifications are present. Moderate multilevel degenerative change is present in the spine. IMPRESSION: No acute abdominal abnormality is detected.
[2016-07-16 14:47] LABS: INR 1.8 (0.8-1.1); PROTHROMBIN TIME PATIENT 20.2 SEC (11.7-14.0)
[2016-07-16 15:00] VITALS: BP 141/74
[2016-07-16] MEDS: CEFTRIAXONE SODIUM 1 GM in IV NORMAL SALINE 50ML 50 ML IV SCH (15:15)
[2016-07-16] MEDS: LACTULOSE 20 GM/30 ML SOLUTION. PO SCH (15:15)
--- NOTE | 2016-07-16 15:58 | RAD ---
Abdominal ultrasound-Limited, 07/16/2016: History: Ascites, planned paracentesis Evaluation of all 4 quadrants demonstrates a small volume of ascites.
[2016-07-16] MEDS: ONDANSETRON PF 4 MG/2 ML VIAL. IV PRN (17:28)
[2016-07-16 19:00] VITALS: BP 133/69
[2016-07-16 23:00] VITALS: BP 129/76
[2016-07-17] MEDS: OXYCODONE/APAP 10/325 TABLET. PO PRN ×4 (00:37→18:22)
[2016-07-17] MEDS: FENTANYL PF 100 MCG/2 ML VIAL. IV PRN (00:37)
[2016-07-17 03:00] VITALS: BP 126/76
[2016-07-17 05:02] LABS: BASO % 0 % (0-3); EOS % 2 % (0-3); HEMATOCRIT 35.5 % (36.0-47.0); HEMOGLOBIN 11.9 g/dL (12.0-15.5); LYMPH # 0.9 x10^3/uL (1.0-4.8); LYMPH % 6 % (24-48); MEAN CORPUSCULAR HEMOGLOBIN 33 pg (25-35); MEAN CORPUSCULAR HGB CONC 34 g/dL (31-37); MEAN CORPUSCULAR VOLUME 99 fL (79-100); MONO % 13 % (0-9); NEUT % 80 % (31-73); PLATELET COUNT 146 x10^3/uL (140-400); RED BLOOD COUNT 3.58 x10^6/uL (3.50-5.40); RED CELL DISTRIBUTION WIDTH 15.4 % (11.5-14.5); WHITE BLOOD COUNT 15.5 x10^3/uL (4.0-11.0)
[2016-07-17 05:38] LABS: CALCIUM 9.5 mg/dL (8.5-10.1); CREATININE 1.5 mg/dL (0.6-1.0); GFR 35.3; POTASSIUM 4.4 mmol/L (3.5-5.1)
[2016-07-17 05:40] LABS: ALBUMIN 2.2 g/dL (3.4-5.0); TOTAL BILIRUBIN 2.9 mg/dL (0.2-1.0); TOTAL PROTEIN 6.5 g/dL (6.4-8.2)
[2016-07-17 07:00] VITALS: BP 116/76
[2016-07-17] MEDS: INSULIN ASPART 300 UNITS/3 ML INSULN.PEN SQ SCH ×3 (08:00→16:22)
[2016-07-17] MEDS: LUBIPROSTONE 8 MCG CAPSULE PO SCH ×2 (09:10→16:21)
[2016-07-17] MEDS: SPIRONOLACTONE 25 MG TABLET PO SCH (09:11)
[2016-07-17] MEDS: METFORMIN 500 MG TABLET. PO SCH ×2 (09:11→16:21)
[2016-07-17] MEDS: LACTULOSE 20 GM/30 ML SOLUTION. PO SCH (09:12)
[2016-07-17] MEDS: PANTOPRAZOLE 40 MG TABLET. PO SCH (09:12)
[2016-07-17] MEDS: LIPASE/PROTEAS/AMYLAS 10/34/55 CAPSULE.DR. PO SCH ×3 (09:12→16:21)
[2016-07-17] MEDS: LACTOBACILLUS ACIDOPH & BULGAR 1 TABLET. PO SCH (09:12)
[2016-07-17] MEDS: POLYETHYLENE GLYCOL 3350 17 GM PACKET. PO SCH ×2 (09:12→20:27)
[2016-07-17 09:51] LABS: % EOS 1 % (0-5); PLT ESTIMATE ADEQUATE (ADEQUATE)
[2016-07-17 11:00] VITALS: BP 111/72
--- NOTE | 2016-07-17 11:46 | PDOC2 ---
CONSULT Date of Consult Date of Consult DATE: 07/17/16 TIME: 11:38 Reason for Consult Reason for Consult: RENAL FAILURE Referring Physician Referring Physician: KEO Identification/Chief Complaint Chief Complaint ABD PAIN AND DISTENTION Source Source: Chart review, Patient History of Present Illness Reason for Visit: THIS IS A 60 YR OLD ADMITTED WITH ABD PAIN AND LOW BP. STATES THAT SHE HAS NOT BEEN EATING FOR SEVERAL DAY. SHE WAS CONSTIPATED AND THEN TOOK MAG SUPPLEMENTS AND THEN HAD LOOSE STOOLS. HER CR HAS GONE FROM 0.9 TO 1.5. SHE HAS HEP C AND CIRRHOSIS. HER LFT'S ARE ELEVATED . SHE HAS ALSO BEEN USING IBUPROFEN DAILY AT HOME FOR HER ABD PAIN. NO CKD NOTED Past Medical History Past Medical History ASCITES GI: Constipation, Other (HEP C) Endocrine: Diabetes Past Surgical History Past Surgical History: Appendectomy, Hernia Repair, Hysterectomy Family History Family History: Hypertension Social History <1 pack per day ALCOHOL: occassional (2 drinks weekly, previously more) Drugs: Marijuana, Other (h/o IVDU) Current Problem List Problem List Problems Medical Problems: (1) Abdominal pain Status: Acute (2) Hypotension Status: Acute Current Medications Current Medications Current Medications Fentanyl Citrate (Fentanyl 2ml Vial) 50 mcg PRN Q15MIN PRN IV PAIN GREATER THAN 3/10 Last administered on 07/13/16 12:19; Start 07/12/16 at 12:30; Stop at 12:29; Status DC Ondansetron HCl (Zofran) 4 mg 1X ONCE IV Last administered on 07/12/16 12:45 ; Start 07/12/16 at 12:30; Stop 07/12/16 at 12:34; Status DC Famotidine 20 mg 20 mg 1X ONCE IVP Last administered on 07/12/16 12:45; Start 07/12/16 at 12:30; Stop 07/12/16 at 12:34; Status DC Sodium Chloride (Iv Sodium Chloride 0.9% 1000ml Bag) 1,000 ml @ 1,000 mls/hr 1X ONCE IV Last administered on 07/12/16 12:45; Start 07/12/16 at 12:30; Stop 07/12/16 at 13:29; Status DC Iohexol (Omnipaque 300 Mg/ml) 75 ml 1X ONCE IV Last administered on 2/11/17at 13:15; Start 07/12/16 at 13:15; Stop 07/12/16 at 13:16; Status DC Info 1 each 1 each PRN DAILY PRN MC SEE COMMENTS; Start 07/12/16 at 13:15; Stop 07/14/16 at 13:14; Status DC Ceftriaxone Sodium 1 gm/ Sodium Chloride 50 ml @ 100 mls/hr Q24H IV Last administered on 07/15/16 12:46; Start 07/13/16 at 15:00; Stop 07/15/16 at 16:59 ; Status DC Ceftriaxone Sodium (Rocephin 1gm Ivpb For Omni) 50 ml @ 100 mls/hr 1X ONCE IV Last administered on 07/12/16 16:12; Start 07/12/16 at 15:45; Stop 07/12/16 at 16:14; Status DC Ondansetron HCl (Zofran) 4 mg PRN Q8HRS PRN IV NAUSEA/VOMITING; Start 07/12/16 at 15:45; Stop 07/13/16 at 15:44; Status DC Fentanyl Citrate 50 mcg 50 mcg PRN Q2HR PRN IV PAIN Last administered on 14:05; Start 07/12/16 at 15:45; Stop 07/13/16 at 15:44; Status DC Sodium Chloride (Iv Sodium Chloride 0.9% 1000ml Bag) 1,000 ml @ 150 mls/hr Q6H40M IV Last administered on 07/13/16 12:10; Start 07/12/16 at 15:31; Stop 07/13/16 at 13:06; Status DC Acetaminophen 650 mg 650 mg PRN Q4HRS PRN PO FEVER; Start 07/12/16 at 15:45; Stop 07/13/16 at 12:54; Status DC Sodium Chloride (Iv Sodium Chloride 0.9% 1000ml Bag) 1,000 ml @ 1,000 mls/hr 1X ONCE IV Last administered on 07/12/16 15:25; Start 07/12/16 at 15:25; Stop 07/12/16 at 16:24; Status DC Magnesium Hydroxide 2400 mg 2,400 mg 1X ONCE PO Last administered on 12:10; Start 07/13/16 at 12:00; Stop 07/13/16 at 12:01; Status DC Sodium Chloride 1,000 ml @ 50 mls/hr Q20H IV ; Start 07/13/16 at 13:05; Stop at 13:07; Status DC Sodium Chloride (Iv Sodium Chloride 0.9% 1000ml Bag) 1,000 ml @ 50 mls/hr Q20H IV Last administered on 07/15/16 04:22; Start 07/13/16 at 13:15; Stop at 15:14; Status DC Ibuprofen (Motrin) 600 mg PRN Q6HRS PRN PO INFLAMMATION Last administered on 12:53; Start 07/13/16 at 15:00; Stop 07/15/16 at 18:05; Status DC Fentanyl Citrate (Fentanyl 2ml Vial) 50 mcg PRN Q2HR PRN IV PAIN Last administered on 07/15/16 12:47; Start 07/13/16 at 16:15; Stop 07/16/16 at 20:52 ; Status DC Insulin Aspart (Novolog) 0-5 UNITS TIDWMEALS SQ Last administered on 07/16/16 12:28; Start 07/13/16 at 17:00 Dextrose 12.5 gm PRN Q15MIN PRN IV SEE COMMENTS; Start 07/13/16 at 16:30 Polyethylene Glycol (miraLAX PACKET) 17 gm BID PO Last administered on 09:12; Start 07/14/16 at 10:00 Lubiprostone (Amitiza) 8 mcg BIDWMEALS PO Last administered on 07/17/16 09:10 ; Start 07/14/16 at 10:00 Phytonadione (Vitamin K) 2 mg 1X ONCE SQ Last administered on 07/14/16 10:47 ; Start 07/14/16 at 10:00; Stop 07/14/16 at 10:01; Status DC Lactulose 20 gm PRN DAILY PRN PO CONSTIPATION Last administered on 07/15/16 08 :49; Start 07/14/16 at 09:45; Stop 07/16/16 at 13:01; Status DC Pantoprazole Sodium (Protonix) 40 mg DAILYAC PO Last administered on 07/17/16 09:12; Start 07/14/16 at 10:00 Metformin HCl (Glucophage) 500 mg BIDWMEALS PO Last administered on 07/17/16 09:11; Start 07/14/16 at 17:00 Lactobacillus Acidophilus (Bacid, Michelle-Bid) 1 tab DAILY PO Last administered on 07/17/16 09:12; Start 07/14/16 at 13:30 Spironolactone (Aldactone) 100 mg DAILY PO Last administered on 07/17/16 09:11 ; Start 07/15/16 at 12:00 Oxycodone/ Acetaminophen (Percocet 5/325) 1 tab PRN Q4HRS PRN PO PAIN Last administered on 07/16/16 21:03; Start 07/15/16 at 15:00; Stop 07/17/16 at 00:27 ; Status DC Amylase/Lipase/ Protease (Zenpep 10,000) 2 cap TIDWMEALS PO Last administered on 07/17/16 09:12; Start 07/15/16 at 17:00 Furosemide (Lasix) 20 mg 1X ONCE IVP Last administered on 07/15/16 15:19; Start 07/15/16 at 15:30; Stop 07/15/16 at 15:31; Status DC Ibuprofen (Motrin) 400 mg PRN TID PRN PO INFLAMMATION; Start 07/15/16 at 18:15 Lactulose 20 gm DAILY PO Last administered on 07/17/16 09:12; Start 07/16/16 at 13:00 Docusate Sodium 100 mg 100 mg PRN DAILY PRN PO CONSTIPATION; Start 07/16/16 at 13:00; Stop 07/16/16 at 20:52; Status DC Ceftriaxone Sodium/Sodium Chloride (Rocephin/Iv Sodium Chloride 0.9% 50ml) 50 ml @ 100 mls/hr Q24H IV Last administered on 07/16/16 15:15; Start 07/16/16 at 14:00 Ondansetron HCl (Zofran) 4 mg PRN Q6HRS PRN IV NAUSEA/VOMITING Last administered on 07/16/16 17:28; Start 07/16/16 at 17:00 Fentanyl Citrate (Fentanyl 2ml Vial) 50 mcg PRN Q2HR PRN IV SEVERE PAIN Last administered on 07/17/16 00:37; Start 07/17/16 at 00:30 Oxycodone/ Acetaminophen (Percocet 10/325) 1 tab PRN Q4HRS PRN PO SEVERE PAIN Last administered on 07/17/16t 09:12; Start 07/17/16 at 00:30 Active Scripts Active Percocet 5-325 Mg Tablet (Oxycodone/Acetaminophen) 1 Each Tablet 1 Tab PO PRN Q6HRS PRN Levaquin (Levofloxacin) 500 Mg Tablet 1 Tab PO DAILY Reported Probiotic (Lactobacillus Combo No.11) 1 Each Cap.sprink 1 Each PO DAILY Metformin Hcl 500 Mg Tablet 1 Tab PO BID Allergies Allergies: Coded Allergies: Sulfa (Sulfonamide Antibiotics) (Verified Allergy, Intermediate, 07/12/16) acetaminophen (Verified Allergy, Intermediate, cirrhosis, 07/13/16) codeine (Verified Allergy, Intermediate, 07/12/16) ROS General: YES: Appetite, Fatigue, Malaise PSYCHOLOGICAL ROS: YES: Anxiety Eyes: Yes Decreased vision HEENT: YES: Heacaches Respiratory: YES: Cough Cardiovascular: yes Chest Pain Gastrointestinal: Yes Constipation Genitourinary: YES Other (NOCTURIA) Neurological: Yes Weakness Skin: Yes Dry Skin Physical Exam General: Alert, Oriented X3, Cooperative, No acute distress HEENT: Atraumatic, PERRLA Lungs: Other (DECREASED AT BASES) Extremities: No clubbing, No edema Skin: No rashes, No breakdown Neuro: Normal speech, Cranial nerves 3-12 NL Psych/Mental Status: Mental status NL, Mood NL MUSCULOSKELETAL: No deformity, No swelling Vitals VITALS Vital Signs Date Time Temp Pulse Resp B/P Pulse Ox O2 Delivery O2 Flow Rate FiO2 07/17/16 09:12 18 Room Air 07/17/16 08:00 2.0 07/17/16 03:00 97.9 119 126/76 93 97.9 Labs Labs Laboratory Tests Test 07/15/16 16:34 07/15/16 20:58 07/16/16 04:33 07/16/16 14:15 Glucose (Fingerstick) 147mg/dL (70-99) 158mg/dL (70-99) White Blood Count 14.5x10^3/uL (4.0-11.0) Red Blood Count 3.58x10^6/uL (3.50-5.40) Hemoglobin 12.0g/dL (12.0-15.5) Hematocrit 35.2% (36.0-47.0) Mean Corpuscular Volume 98fL (79-100) Mean Corpuscular Hemoglobin 34pg (25-35) Mean Corpuscular Hemoglobin Concent 34g/dL (31-37) Red Cell Distribution Width 15.3% (11.5-14.5) Platelet Count 139x10^3/uL (140-400) Neutrophils (%) (Auto) 78% (31-73) Lymphocytes (%) (Auto) 7% (24-48) Monocytes (%) (Auto) 13% (0-9) Eosinophils (%) (Auto) 3% (0-3) Basophils (%) (Auto) 0% (0-3) Neutrophils # (Auto) 11.3x10^3uL (1.8-7.7) Lymphocytes # (Auto) 1.0x10^3/uL (1.0-4.8) Monocytes # (Auto) 1.8x10^3/uL (0.0-1.1) Eosinophils # (Auto) 0.4x10^3/uL (0.0-0.7) Basophils # (Auto) 0.0x10^3/uL (0.0-0.2) Sodium Level 132mmol/L (136-145) Potassium Level 3.8mmol/L (3.5-5.1) Chloride Level 99mmol/L (98-107) Carbon Dioxide Level 22mmol/L (21-32) Anion Gap 11 (6-14) Blood Urea Nitrogen 19mg/dL (7-20) Creatinine 1.5mg/dL (0.6-1.0) Estimated GFR (Cockcroft-Gault) 35.3 BUN/Creatinine Ratio 13 (6-20) Glucose Level 174mg/dL (70-99) Calcium Level 8.8mg/dL (8.5-10.1) Total Bilirubin 2.5mg/dL (0.2-1.0) Direct Bilirubin 1.8mg/dL (0.0-0.2) Aspartate Amino Transf (AST/SGOT) 64U/L (15-37) Alanine Aminotransferase (ALT/SGPT) 37U/L (14-59) Alkaline Phosphatase 308U/L (46-116) Total Protein 6.5g/dL (6.4-8.2) Albumin 2.1g/dL (3.4-5.0) Albumin/Globulin Ratio 0.5 (1.0-1.7) Prothrombin Time 20.2SEC (11.7-14.0) Prothromb Time International Ratio 1.8 (0.8-1.1) Ammonia 40mcmol/L (11-34) Test 07/16/16 20:42 07/17/16 03:10 07/17/16 08:22 Glucose (Fingerstick) 153mg/dL (70-99) 153mg/dL (70-99) White Blood Count 15.5x10^3/uL (4.0-11.0) Red Blood Count 3.58x10^6/uL (3.50-5.40) Hemoglobin 11.9g/dL (12.0-15.5) Hematocrit 35.5% (36.0-47.0) Mean Corpuscular Volume 99fL (79-100) Mean Corpuscular Hemoglobin 33pg (25-35) Mean Corpuscular Hemoglobin Concent 34g/dL (31-37) Red Cell Distribution Width 15.4% (11.5-14.5) Platelet Count 146x10^3/uL (140-400) Neutrophils (%) (Auto) 80% (31-73) Lymphocytes (%) (Auto) 6% (24-48) Monocytes (%) (Auto) 13% (0-9) Eosinophils (%) (Auto) 2% (0-3) Basophils (%) (Auto) 0% (0-3) Neutrophils # (Auto) 12.4x10^3uL (1.8-7.7) Lymphocytes # (Auto) 0.9x10^3/uL (1.0-4.8) Monocytes # (Auto) 1.9x10^3/uL (0.0-1.1) Eosinophils # (Auto) 0.2x10^3/uL (0.0-0.7) Basophils # (Auto) 0.0x10^3/uL (0.0-0.2) Segmented Neutrophils % 54% (35-66) Band Neutrophils % 30% (0-9) Lymphocytes % 4% (24-48) Monocytes % 11% (0-10) Eosinophils % 1% (0-5) Platelet Estimate Adequate (ADEQUATE) Sodium Level 131mmol/L (136-145) Potassium Level 4.4mmol/L (3.5-5.1) Chloride Level 97mmol/L (98-107) Carbon Dioxide Level 20mmol/L (21-32) Anion Gap 14 (6-14) Blood Urea Nitrogen 27mg/dL (7-20) Creatinine 1.5mg/dL (0.6-1.0) Estimated GFR (Cockcroft-Gault) 35.3 Glucose Level 143mg/dL (70-99) Calcium Level 9.5mg/dL (8.5-10.1) Total Bilirubin 2.9mg/dL (0.2-1.0) Direct Bilirubin 2.0mg/dL (0.0-0.2) Aspartate Amino Transf (AST/SGOT) 64U/L (15-37) Alanine Aminotransferase (ALT/SGPT) 36U/L (14-59) Alkaline Phosphatase 207U/L (46-116) Total Protein 6.5g/dL (6.4-8.2) Albumin 2.2g/dL (3.4-5.0) Laboratory Tests Test 07/16/16 14:15 07/16/16 20:42 07/17/16 03:10 07/17/16 08:22 Prothrombin Time 20.2SEC (11.7-14.0) Prothromb Time International Ratio 1.8 (0.8-1.1) Ammonia 40mcmol/L (11-34) Glucose (Fingerstick) 153mg/dL (70-99) 153mg/dL (70-99) White Blood Count 15.5x10^3/uL (4.0-11.0) Red Blood Count 3.58x10^6/uL (3.50-5.40) Hemoglobin 11.9g/dL (12.0-15.5) Hematocrit 35.5% (36.0-47.0) Mean Corpuscular Volume 99fL (79-100) Mean Corpuscular Hemoglobin 33pg (25-35) Mean Corpuscular Hemoglobin Concent 34g/dL (31-37) Red Cell Distribution Width 15.4% (11.5-14.5) Platelet Count 146x10^3/uL (140-400) Neutrophils (%) (Auto) 80% (31-73) Lymphocytes (%) (Auto) 6% (24-48) Monocytes (%) (Auto) 13% (0-9) Eosinophils (%) (Auto) 2% (0-3) Basophils (%) (Auto) 0% (0-3) Neutrophils # (Auto) 12.4x10^3uL (1.8-7.7) Lymphocytes # (Auto) 0.9x10^3/uL (1.0-4.8) Monocytes # (Auto) 1.9x10^3/uL (0.0-1.1) Eosinophils # (Auto) 0.2x10^3/uL (0.0-0.7) Basophils # (Auto) 0.0x10^3/uL (0.0-0.2) Segmented Neutrophils % 54% (35-66) Band Neutrophils % 30% (0-9) Lymphocytes % 4% (24-48) Monocytes % 11% (0-10) Eosinophils % 1% (0-5) Platelet Estimate Adequate (ADEQUATE) Sodium Level 131mmol/L (136-145) Potassium Level 4.4mmol/L (3.5-5.1) Chloride Level 97mmol/L (98-107) Carbon Dioxide Level 20mmol/L (21-32) Anion Gap 14 (6-14) Blood Urea Nitrogen 27mg/dL (7-20) Creatinine 1.5mg/dL (0.6-1.0) Estimated GFR (Cockcroft-Gault) 35.3 Glucose Level 143mg/dL (70-99) Calcium Level 9.5mg/dL (8.5-10.1) Total Bilirubin 2.9mg/dL (0.2-1.0) Direct Bilirubin 2.0mg/dL (0.0-0.2) Aspartate Amino Transf (AST/SGOT) 64U/L (15-37) Alanine Aminotransferase (ALT/SGPT) 36U/L (14-59) Alkaline Phosphatase 207U/L (46-116) Total Protein 6.5g/dL (6.4-8.2) Albumin 2.2g/dL (3.4-5.0) Assessment/Plan Assessment/Plan IMP CARRINGTON WITH CR OF 1.5-NO CKD ASCITES HEP C AND CIRRHOSIS HX OF IVDA HYPOVOLEMIA ABD PAIN PLAN LOW FLOW IVF'S STOP IBUPROFEN CONT WITH ALDACTONE FOR NOW MAY NEED PARACENTESIS FOR DX AND THERAPEUTIC REASONS ANIA HERNANDEZ MD Jul 17, 2016 11:45
[2016-07-17] MEDS: IV NORMAL SALINE 1000ML BAG 1,000 ML IV SCH (12:17)
--- NOTE | 2016-07-17 12:38 | PDOC ---
Subjective: Subjective: Feels worse w/ more abd discomfort. Ate a little but vomited this morning. Objective: Vital Signs: Vital Signs Date Time Temp Pulse Resp B/P Pulse Ox O2 Delivery O2 Flow Rate FiO2 07/17/16 12:16 18 Room Air 07/17/16 08:00 2.0 07/17/16 03:00 97.9 119 126/76 93 97.9 Labs: Laboratory Tests Test 07/16/16 20:42 07/17/16 08:22 Glucose (Fingerstick) 153mg/dL (70-99) 153mg/dL (70-99) Imaging: Abd US 07/16/16 Evaluation of all 4 quadrants demonstrates a small volume of ascites. KUB 07/16/16 IMPRESSION: No acute abdominal abnormality is detected. PE: GEN: looks uncomfortable LUNGS: nasal cannula HEART: tachycardic ABD: distended, tender EXTREM: BLE edema NEURO/PSYCH: A & O 3 A/P: Cirrhosis -h/o Hep C, varices -CT 07/12 w/ cirrhosis, portal hypertension, ascites - - > no indication for therapeutic paracentesis per IR on 07/14 -doppler w/ patent portal vein 07/14, US w/ cholelithiasis, moderate gallbladder wall thickening, and small volume ascites 07/15, again w/ small volume ascites -INR 1.8, plt 146, bili worse (2.9), AFP WNL, ammonia 40 Abd distention/discomfort, LE edema -h/o umb hernia repair -h/o GERD on PPI -on Aldactone 100mg QD CARRINGTON -Cr stable (1.5) w/ renal following (stopped ibuprofen) Leukocytosis - worse -WBC 15.5 -started Rocephin 07/16 Constipation - multiple stools charted -on Miralax BID, Amitiza BID, lactulose QD, probiotics, Colace -- Will review w/ Dr. Stewart. QING REYES Jul 17, 2016 12:38
--- NOTE | 2016-07-17 13:13 | PDOC ---
PROGRESS NOTES Chief Complaint Chief Complaint Abdominal pain ASSESSMENT AND PLAN: 1. Abd pain: difficult to control, suspect mutifactorial. incl anacerca, ? colitis on initial CT. multi-drug regimen 2. Leukocytosis: reactive, poss infectious. started in Ceftriax for ?SPO. no focal sign of infect. 3. Constipation: apparently chronic. does have bowel regimen with previously reg BM, none today. add lactulose S.O. 4. Ascites: insufficient amounts for tap 3 days ago as well as rpt yesterday. on spironolactone. 5. Anacerca: appears worse. l 6. CARRINGTON: worsening. intravascular depletion with body fluid overload 2/[address] Darnell's input noted 7. Cirrhosis: 2/2 HCV (+/- EtOH). known varices 8. Thrombocytopenia: chronic 2/2 above 9. Hyperbilirubinemia: worsening with large direct bili component: worsening liver fxn. suspect heading towards hepatorenal syndrome 10. DM2: on metformin at home. stop 2/2 poor PO intake and worsening renal fxn. ISS 11. Protein malnutrition: malabsorption, liver dz... consider IV albumin with IVF for CARRINGTON. 12. Hx multi-drug abuse, incl IVDA 13. Prognosis: poor. d/w daughter, pt sleeping: this may be terminal event. daughter understands. DNR/DNI. palliative consult ordered. Vitals Vitals Vital Signs Date Time Temp Pulse Resp B/P Pulse Ox O2 Delivery O2 Flow Rate FiO2 07/17/16 12:16 18 Room Air 07/17/16 08:00 2.0 07/17/16 03:00 97.9 119 126/76 93 97.9 Physical Exam General: Other (sleeping. appears much more ill than even just yesterday. ) Heart: Regular rate, No murmurs Lungs: Clear Abdomen: Normal bowel sounds, Other (distended, anacerca) Extremities: No clubbing, No edema Skin: No rashes, No breakdown Labs LABS Laboratory Tests Test 07/16/16 14:15 07/16/16 20:42 07/17/16 03:10 07/17/16 08:22 Prothrombin Time 20.2SEC (11.7-14.0) Prothromb Time International Ratio 1.8 (0.8-1.1) Ammonia 40mcmol/L (11-34) Glucose (Fingerstick) 153mg/dL (70-99) 153mg/dL (70-99) White Blood Count 15.5x10^3/uL (4.0-11.0) Red Blood Count 3.58x10^6/uL (3.50-5.40) Hemoglobin 11.9g/dL (12.0-15.5) Hematocrit 35.5% (36.0-47.0) Mean Corpuscular Volume 99fL (79-100) Mean Corpuscular Hemoglobin 33pg (25-35) Mean Corpuscular Hemoglobin Concent 34g/dL (31-37) Red Cell Distribution Width 15.4% (11.5-14.5) Platelet Count 146x10^3/uL (140-400) Neutrophils (%) (Auto) 80% (31-73) Lymphocytes (%) (Auto) 6% (24-48) Monocytes (%) (Auto) 13% (0-9) Eosinophils (%) (Auto) 2% (0-3) Basophils (%) (Auto) 0% (0-3) Neutrophils # (Auto) 12.4x10^3uL (1.8-7.7) Lymphocytes # (Auto) 0.9x10^3/uL (1.0-4.8) Monocytes # (Auto) 1.9x10^3/uL (0.0-1.1) Eosinophils # (Auto) 0.2x10^3/uL (0.0-0.7) Basophils # (Auto) 0.0x10^3/uL (0.0-0.2) Segmented Neutrophils % 54% (35-66) Band Neutrophils % 30% (0-9) Lymphocytes % 4% (24-48) Monocytes % 11% (0-10) Eosinophils % 1% (0-5) Platelet Estimate Adequate (ADEQUATE) Sodium Level 131mmol/L (136-145) Potassium Level 4.4mmol/L (3.5-5.1) Chloride Level 97mmol/L (98-107) Carbon Dioxide Level 20mmol/L (21-32) Anion Gap 14 (6-14) Blood Urea Nitrogen 27mg/dL (7-20) Creatinine 1.5mg/dL (0.6-1.0) Estimated GFR (Cockcroft-Gault) 35.3 Glucose Level 143mg/dL (70-99) Calcium Level 9.5mg/dL (8.5-10.1) Total Bilirubin 2.9mg/dL (0.2-1.0) Direct Bilirubin 2.0mg/dL (0.0-0.2) Aspartate Amino Transf (AST/SGOT) 64U/L (15-37) Alanine Aminotransferase (ALT/SGPT) 36U/L (14-59) Alkaline Phosphatase 207U/L (46-116) Total Protein 6.5g/dL (6.4-8.2) Albumin 2.2g/dL (3.4-5.0) Review of Systems Review of Systems wakes briefly to verbal input. mary jones. ISACC SAGASTUME MD Jul 17, 2016 13:13
[2016-07-17] MEDS: CEFTRIAXONE SODIUM 1 GM in IV NORMAL SALINE 50ML 50 ML IV SCH (14:42)
[2016-07-17 15:00] VITALS: BP 121/72
[2016-07-17] MEDS ORDERED: ONDANSETRON ODT 4 MG TAB.RAPDIS PO PRN (17:15)
[2016-07-17 19:00] VITALS: BP 120/73
[2016-07-17] MEDS: ONDANSETRON PF 4 MG/2 ML VIAL. IV PRN (20:34)
[2016-07-17 23:00] VITALS: BP 136/82
[2016-07-18] MEDS: OXYCODONE/APAP 10/325 TABLET. PO PRN ×2 (02:13→12:14)
[2016-07-18 03:00] VITALS: BP 115/66
[2016-07-18 04:59] LABS: BASO # 0.1 x10^3/uL (0.0-0.2); BASO % 0 % (0-3); EOS % 3 % (0-3); HEMOGLOBIN 11.9 g/dL (12.0-15.5); LYMPH # 1.2 x10^3/uL (1.0-4.8); LYMPH % 7 % (24-48); MEAN CORPUSCULAR HEMOGLOBIN 33 pg (25-35); MEAN CORPUSCULAR HGB CONC 33 g/dL (31-37); MEAN CORPUSCULAR VOLUME 100 fL (79-100); MONO % 4 % (0-9); NEUT % 86 % (31-73); PLATELET COUNT 156 x10^3/uL (140-400); RED BLOOD COUNT 3.59 x10^6/uL (3.50-5.40)
[2016-07-18 05:31] LABS: CREATININE 2.2 mg/dL (0.6-1.0); GFR 22.7; POTASSIUM 4.8 mmol/L (3.5-5.1)
[2016-07-18] MEDS: IV NORMAL SALINE 1000ML BAG 1,000 ML IV SCH ×4 (06:20→23:51)
[2016-07-18 06:48] LABS: % EOS 1 % (0-5)
[2016-07-18 06:49] LABS: PLT ESTIMATE ADEQUATE (ADEQUATE); TOXIC GRANULATION PRESENT
[2016-07-18 07:55] VITALS: BP 109/65
[2016-07-18] MEDS: INSULIN ASPART 300 UNITS/3 ML INSULN.PEN SQ SCH ×3 (08:00→17:00)
[2016-07-18] MEDS: ONDANSETRON PF 4 MG/2 ML VIAL. IV PRN ×2 (08:26→23:16)
[2016-07-18] MEDS: LIPASE/PROTEAS/AMYLAS 10/34/55 CAPSULE.DR. PO SCH ×3 (08:32→17:00)
[2016-07-18] MEDS: PANTOPRAZOLE 40 MG TABLET. PO SCH (08:32)
[2016-07-18] MEDS: LUBIPROSTONE 8 MCG CAPSULE PO SCH ×2 (08:32→17:00)
[2016-07-18] MEDS: LACTOBACILLUS ACIDOPH & BULGAR 1 TABLET. PO SCH (08:33)
[2016-07-18] MEDS: LACTULOSE 20 GM/30 ML SOLUTION. PO SCH ×2 (08:33→23:18)
[2016-07-18] MEDS: SPIRONOLACTONE 25 MG TABLET PO SCH (08:33)
[2016-07-18] MEDS: POLYETHYLENE GLYCOL 3350 17 GM PACKET. PO SCH ×2 (08:34→21:00)
--- NOTE | 2016-07-18 10:50 | PDOC ---
Objective: Objective: Per RN - edema, confusion, vomiting. Vital Signs: Vital Signs Date Time Temp Pulse Resp B/P Pulse Ox O2 Delivery O2 Flow Rate FiO2 07/18/16 08:00 Nasal Cannula 2.5 07/18/16 07:55 97.5 107 10 109/65 91 97.5 Labs: Laboratory Tests Test 07/17/16 11:44 07/17/16 16:20 07/17/16 21:14 07/18/16 04:05 Glucose (Fingerstick) 163mg/dL 166mg/dL 168mg/dL White Blood Count 18.0x10^3/uL Red Blood Count 3.59x10^6/uL Hemoglobin 11.9g/dL Hematocrit 36.0% Mean Corpuscular Volume 100fL Mean Corpuscular Hemoglobin 33pg Mean Corpuscular Hemoglobin Concent 33g/dL Red Cell Distribution Width 16.0% Platelet Count 156x10^3/uL Neutrophils (%) (Auto) 86% Lymphocytes (%) (Auto) 7% Monocytes (%) (Auto) 4% Eosinophils (%) (Auto) 3% Basophils (%) (Auto) 0% Neutrophils # (Auto) 15.5x10^3uL Lymphocytes # (Auto) 1.2x10^3/uL Monocytes # (Auto) 0.8x10^3/uL Eosinophils # (Auto) 0.5x10^3/uL Basophils # (Auto) 0.1x10^3/uL Segmented Neutrophils % 83% Band Neutrophils % 3% Lymphocytes % 5% Monocytes % 8% Eosinophils % 1% Toxic Granulation Present Platelet Estimate Adequate Sodium Level 129mmol/L Potassium Level 4.8mmol/L Chloride Level 97mmol/L Carbon Dioxide Level 16mmol/L Anion Gap 16 Blood Urea Nitrogen 41mg/dL Creatinine 2.2mg/dL Estimated GFR (Cockcroft-Gault) 22.7 Glucose Level 164mg/dL Calcium Level 10.0mg/dL Test 07/18/16 07:56 Glucose (Fingerstick) 157mg/dL PE: GEN: looks ill LUNGS: CTAB HEART: tachycardic ABD: distended, firm, tender throughout EXTREM: BLE edema (seems stable) NEURO/PSYCH: probably some confusion A/P: Cirrhosis -h/o Hep C, varices -CT 07/12 w/ cirrhosis, portal hypertension, ascites - - > no indication for therapeutic paracentesis per IR on 07/14 -Doppler w/ patent portal vein 07/14, US w/ cholelithiasis, moderate gallbladder wall thickening, and small volume ascites 07/15, again w/ small volume ascites -AFP WNL Abd distention/discomfort, LE edema, anasarca -h/o umb hernia repair, hysterectomy (note other documentation w/ h/o [id number] which she denies to me) -h/o GERD on PPI -on Aldactone 100mg QD CARRINGTON -Cr worse (1.5 to 2.2), nephrology following Leukocytosis - worse -WBC from 15.5 to 18 Constipation - improved -on Miralax BID, Amitiza BID, lactulose QD, probiotics, Colace -- Decompensated cirrhosis. Will ask ID to see - d/w Dr. Mitchell. Recheck LFTs, ammonia. QING REYES Jul 18, 2016 10:50
[2016-07-18 11:00] VITALS: BP 111/67
--- NOTE | 2016-07-18 11:00 | PDOC ---
Renal-Progress Notes Subjective Notes Notes SOME CONFUSION SOME VOMITING History of Present Illness Hx of present illness NO CHANGE Vitals Vitals Vital Signs Date Time Temp Pulse Resp B/P Pulse Ox O2 Delivery O2 Flow Rate FiO2 07/18/16 08:00 Nasal Cannula 2.5 07/18/16 07:55 97.5 107 10 109/65 91 97.5 Weight Weight [ ] I.O. Intake and Output Intake and Output 07/18/16 07:00 Intake Total 720 ml Balance 720 ml Intake Oral 720 ml # Voids 3 # Bowel Movements 1 Labs Labs Laboratory Tests Test 07/17/16 11:44 07/17/16 16:20 07/17/16 21:14 07/18/16 04:05 Glucose (Fingerstick) 163mg/dL (70-99) 166mg/dL (70-99) 168mg/dL (70-99) White Blood Count 18.0x10^3/uL (4.0-11.0) Red Blood Count 3.59x10^6/uL (3.50-5.40) Hemoglobin 11.9g/dL (12.0-15.5) Hematocrit 36.0% (36.0-47.0) Mean Corpuscular Volume 100fL (79-100) Mean Corpuscular Hemoglobin 33pg (25-35) Mean Corpuscular Hemoglobin Concent 33g/dL (31-37) Red Cell Distribution Width 16.0% (11.5-14.5) Platelet Count 156x10^3/uL (140-400) Neutrophils (%) (Auto) 86% (31-73) Lymphocytes (%) (Auto) 7% (24-48) Monocytes (%) (Auto) 4% (0-9) Eosinophils (%) (Auto) 3% (0-3) Basophils (%) (Auto) 0% (0-3) Neutrophils # (Auto) 15.5x10^3uL (1.8-7.7) Lymphocytes # (Auto) 1.2x10^3/uL (1.0-4.8) Monocytes # (Auto) 0.8x10^3/uL (0.0-1.1) Eosinophils # (Auto) 0.5x10^3/uL (0.0-0.7) Basophils # (Auto) 0.1x10^3/uL (0.0-0.2) Segmented Neutrophils % 83% (35-66) Band Neutrophils % 3% (0-9) Lymphocytes % 5% (24-48) Monocytes % 8% (0-10) Eosinophils % 1% (0-5) Toxic Granulation Present Platelet Estimate Adequate (ADEQUATE) Sodium Level 129mmol/L (136-145) Potassium Level 4.8mmol/L (3.5-5.1) Chloride Level 97mmol/L (98-107) Carbon Dioxide Level 16mmol/L (21-32) Anion Gap 16 (6-14) Blood Urea Nitrogen 41mg/dL (7-20) Creatinine 2.2mg/dL (0.6-1.0) Estimated GFR (Cockcroft-Gault) 22.7 Glucose Level 164mg/dL (70-99) Calcium Level 10.0mg/dL (8.5-10.1) Test 07/18/16 07:56 Glucose (Fingerstick) 157mg/dL (70-99) Micro Micro Microbiology 07/12/16 Urine Culture - Final, Complete 07/12/16 Urine Culture Result 1 (MILIND) - Final, Complete Review of Systems Constitutional: yes: alert, weakness Ears/Nose/Throat: Yes: no symptom reported Eyes: Yes: no symptom reported Pulmonary: Yes no symptom reported Cardiovascular: Yes no symptom reported Gastrointestional: Yes: abdominal pain, nausea, vomiting Genitourinary: Yes: no symptom reported Musculoskeletal: Yes: muscle stiffness Skin: Yes no symptom reported Physical Exam General Appearance: no apparent distress Skin: warm Respiratory: decreased breath sounds Heart: S1S2, RRR Abdomen: soft, distension Genitourinary: bladder flat Extremities: pulses present, atrophy Neurology: alert Assessment Assessment IMP [facility]-WORSE WITH CR UP TO 2.2 HEP C CIRRHOSIS HYPOVOLEMIA ASCITES HYPONATREMIA LEUCOCYTOSIS PLAN INCREASE IVF RATE CONT ALDACTONE FOR NOW SUGGEST ID EVAL MAY NEED TO R/O SBP OR COLITIS STOP METFORMIN DUE TO [place] ANIA HERNANDEZ MD Jul 18, 2016 11:00
[2016-07-18 12:12] LABS: ALBUMIN 2.2 g/dL (3.4-5.0); DIRECT BILIRUBIN 2.1 mg/dL (0.0-0.2); TOTAL BILIRUBIN 3.2 mg/dL (0.2-1.0); TOTAL PROTEIN 6.8 g/dL (6.4-8.2)
[2016-07-18] MEDS: PIPERACILLIN/TAZOBACTAM 3.375 GM in IV NORMAL SALINE 50ML 50 ML IV SCH ×3 (12:13→23:51)
[2016-07-18] MEDS ORDERED: ONDANSETRON PF 4 MG/2 ML VIAL. IV PRN (14:00)
[2016-07-18] MEDS ORDERED: ONDANSETRON ODT 4 MG TAB.RAPDIS PO PRN ×2 (14:00→15:00)
[2016-07-18] MEDS: METOCLOPRAMIDE HCL 10 MG/2 ML VIAL. IV PRN (14:24)
[2016-07-18] MEDS: FENTANYL PF 100 MCG/2 ML VIAL. IV PRN ×5 (14:26→23:19)
[2016-07-18 15:00] VITALS: BP 119/75
[2016-07-18] MEDS ORDERED: METFORMIN 500 MG TABLET. PO SCH (17:00)
[2016-07-18 19:00] VITALS: BP 112/68
--- NOTE | 2016-07-18 19:06 | PDOC2 ---
PALLIATIVE CARE Palliative Care Note Palliative Care Consult requested by Bridgette RIDDLE; GI. Diagnosis: Cirrhosis; Stage IV; UTI; DM: Hep C; [place]; Portal HTN Patient unresponsive to voice; confused at times Met with Edwige; daughter DPOA; son Ti SAM per phone; included in later conversation Ania Sister per phone. Reviewed medical condition as above. Discussed options for care. Family does not see benefit in continuing aggressive care and would like to focus on her comfort. Per Edwige [facility] has been applied for. Has met with Nola PEREZ Patient has done [employer] [facility]: "Believes in [employer]" Spiritual Copy of AD placed on record. Discussed options for care; Home with Hospice vs custodial with Hospice vs IP Hospice. Patient is self pay so will need to pursue conversation with Hospice agency for assistance in coverage of care and well as equipment. Edwige has young children at home and does not feel she can care for her at home. Code Status: Discussed risks and benefits of CPR and intubation. Edwige requests DNR/DNI Understands without this attempt patient likely would . Spoke with Dr. Morris. Reviewed family wishes for comfort care and DNR/DNI Message left with Nola PEREZ to assist with discharge plan. ALFONZO RIOS Jul 18, 2016 19:06
[2016-07-18] MEDS ORDERED: LACTULOSE 20 GM/30 ML SOLUTION. PO PRN (20:00)
[2016-07-19] MEDS: FENTANYL PF 100 MCG/2 ML VIAL. IV PRN ×3 (00:40→03:57)
[2016-07-19] MEDS: METOCLOPRAMIDE HCL 10 MG/2 ML VIAL. IV PRN (01:16)
[2016-07-19] MEDS ORDERED: LORAZEPAM 0.5 MG TABLET. PO PRN (02:00)
[2016-07-19] MEDS ORDERED: LORAZEPAM 1 MG TABLET. PO PRN (02:00)
[2016-07-19] MEDS: LORAZEPAM 2 MG/ML VIAL IV PRN ×2 (02:14→05:16)
[2016-07-19] MEDS ORDERED: LORAZEPAM 2 MG/ML VIAL IV PRN (02:15)
[2016-07-19] MEDS: PIPERACILLIN/TAZOBACTAM 3.375 GM in IV NORMAL SALINE 50ML 50 ML IV SCH ×3 (06:04→18:00)
[2016-07-19 07:00] VITALS: BP 91/46
[2016-07-19] MEDS: PANTOPRAZOLE 40 MG TABLET. PO SCH (07:30)
[2016-07-19] MEDS: LIPASE/PROTEAS/AMYLAS 10/34/55 CAPSULE.DR. PO SCH ×3 (08:00→17:00)
[2016-07-19] MEDS: LUBIPROSTONE 8 MCG CAPSULE PO SCH ×2 (08:00→17:00)
[2016-07-19] MEDS: INSULIN ASPART 300 UNITS/3 ML INSULN.PEN SQ SCH ×3 (08:00→17:00)
[2016-07-19] MEDS: POLYETHYLENE GLYCOL 3350 17 GM PACKET. PO SCH ×2 (09:00→21:00)
[2016-07-19] MEDS: SPIRONOLACTONE 25 MG TABLET PO SCH (09:00)
[2016-07-19] MEDS: LACTOBACILLUS ACIDOPH & BULGAR 1 TABLET. PO SCH (09:00)
[2016-07-19] MEDS: LACTULOSE 20 GM/30 ML SOLUTION. PO SCH ×2 (09:00→21:00)
[2016-07-19 11:39] VITALS: BP 89/39
--- NOTE | 2016-07-19 12:11 | PDOC ---
PROGRESS NOTES Chief Complaint Chief Complaint Abdominal pain ASSESSMENT AND PLAN: endstage liver failure, renal failure d/w daughter: she does not want her mother to suffer any further and has decided on [employer] over night. completely agree with decision. stop lab draws, IFV , Xrays, etc. Keep comfortable Vitals Vitals Vital Signs Date Time Temp Pulse Resp B/P Pulse Ox O2 Delivery O2 Flow Rate FiO2 07/19/16 11:39 91.8 98 13 89/39 90 Nasal Cannula 6.0 91.8 Physical Exam General: Other (somnolent. ) Heart: Regular rate Lungs: Clear Abdomen: Normal bowel sounds, Other (distended, anacerca, grimassing w/ palpation in LLQ) Extremities: No clubbing, No edema Skin: No rashes Labs LABS Laboratory Tests Test 07/18/16 17:40 Glucose (Fingerstick) 155mg/dL (70-99) Review of Systems Review of Systems somnolent ISACC SAGASTUME MD Jul 19, 2016 12:11
[2016-07-19 14:30] VITALS: BP 79/43
--- NOTE | 2016-07-20 23:20 | CONS ---
DATE OF CONSULTATION: 07/18/2016 REQUESTING PHYSICIAN: The nurse practitioner for GI, Bridgette Velásquze. REASON FOR CONSULTATION: Leukocytosis. HISTORY OF PRESENT ILLNESS: This is a 60-year-old female with history of hepatitis C with cirrhosis, varices and some ascites whose white count is going up. The patient has been receiving Rocephin. The patient denies any nausea or vomiting. Denies any diarrhea. Denies any chest pain. There is no fever. The patient is eating, although the appetite is poor. PAST MEDICAL AND SURGICAL HISTORY: Positive for hepatitis C, IV drug use. In the past had diabetes, has had hysterectomy and appendicectomy. SOCIAL HISTORY: Negative for smoking. The patient drinks about 2 drinks per week, no more IV drug use. She does do marijuana. REVIEW OF SYSTEMS: As per HPI. All other systems reviewed are negative. CURRENT MEDICATIONS: Reviewed. PHYSICAL EXAMINATION: GENERAL: Alert and oriented female, not in distress. VITAL SIGNS: Stable, afebrile. HEENT: NAD. NECK: Supple. No JVD. No lymphadenopathy. LUNGS: Clear. HEART: S1 and S2 regular. ABDOMEN: Benign. EXTREMITIES: About 2+ pitting edema present. NEUROLOGIC: The patient is neurologically intact. LABORATORY DATA: White count is 18,000. BUN 41 and creatinine 2.2. Urinalysis is unremarkable. Urine culture is negative. The patient had a CT scan of the abdomen and pelvis when she came in, which showed atelectasis, cirrhosis, portal hypertension and ascites. IMPRESSION: 1. Leukocytosis, most likely related to the liver failure as reactive from the liver. I do not see any obvious evidence for infection. 2. Cirrhosis of liver. 3. Hepatitis C. 4. Diabetes. 5. Renal insufficiency. RECOMMENDATIONS: We will change Rocephin to Zosyn as empiric coverage, see the response and we will continue to follow. Thank you very much, Dr. Morris, and Bridgette Velásquez, for giving me the opportunity to participate in this patient's care. ANTONIA RUSSELL MD DR: ESE/anthony JOB#: [id number] / [id number]
== END 2016-07-19 23:15 | disposition expired | DRG 682 ==
LOC: ER 11:12 → 5 NORTH 15:06
PROVIDERS: ADMIT Internal Medicine; ATTEND Internal Medicine
DX: N17.9 Acute kidney failure, unspecified (principal); E43 Unspecified severe protein-calorie malnutrition; N39.0 Urinary tract infection, site not specified; R18.8 Other ascites; E87.1 Hypo-osmolality and hyponatremia; K76.6 Portal hypertension; C16.9 Malignant neoplasm of stomach, unspecified; K59.00 Constipation, unspecified; D69.6 Thrombocytopenia, unspecified; E11.9 Type 2 diabetes mellitus without complications; E78.00 Pure hypercholesterolemia, unspecified; E78.5 Hyperlipidemia, unspecified; E86.1 Hypovolemia; Z51.5 Encounter for palliative care; I10 Essential (primary) hypertension; K21.9 Gastro-esophageal reflux disease without esophagitis; K52.9 Noninfective gastroenteritis and colitis, unspecified; K72.90 Hepatic failure, unspecified without coma; K74.60 Unspecified cirrhosis of liver; K86.89 Other specified diseases of pancreas; T50.1X5A Adverse effect of loop [high-ceiling] diuretics, initial encounter; Z66 Do not resuscitate; F12.90 Cannabis use, unspecified, uncomplicated; K57.90 Diverticulosis of intestine, part unspecified, without perforation or abscess without bleeding; I95.9 Hypotension, unspecified; D72.829 Elevated white blood cell count, unspecified; B19.20 Unspecified viral hepatitis C without hepatic coma; Z82.49 Family history of ischemic heart disease and other diseases of the circulatory system; Z85.028 Personal history of other malignant neoplasm of stomach; Z90.710 Acquired absence of both cervix and uterus; Z88.2 Allergy status to sulfonamides; Z88.1 Allergy status to other antibiotic agents; Z88.5 Allergy status to narcotic agent
CPT/HCPCS: 36415; 74000; 74177; 76700; 76705; 80048; 80053; 80076; 81001; 82105; 82140; 82947; 83690; 85007; 85027; 85610; 85730; 87086; 93005; 93976; 96361; 96365; 96375; J0690; J0696; J1815; J2060; J2405; J2543; J2765; J3010; J3430; J7030; Q0162; Q9967; S0028; 99285-25